=== PATIENT | male | born 1980 | race Caucasian/White ===

== ENCOUNTER 2025-02-28 10:31 | Observation (INO) | payer SELFPAY ==
[2025-02-28] VITALS (14 sets, daily range): BP systolic 139–159; BP diastolic 98–110; PULSE 112–120; RESP 19–40; TEMP 36.3–36.7; O2SAT 91–100; BMI 34.1
--- NOTE | ~2025-02-28 | XR_ITS ---
Examination: XR chest 2V Clinical History: SOB Comparison: None Technique: PA and Lateral Findings: Heart size upper limit of normal. Right basilar airspace opacity. No acute bony abnormality. IMPRESSION: 1. Right basilar airspace disease. Reviewed, dictated and finalized at location R. ICIAN INVESTIGATOR
--- NOTE | 2025-02-28 12:53 | ECG_ITS ---
Test Date: 2025-02-28 13:07:42 Measurements Intervals [place] Rate: 108 P: 74 AL: 124 QRS: -53 QRSD: 115 T: 98 QT: 354 QTc: 476 Interpretive Statements SINUS TACHYCARDIA WITH OCCASIONAL VENTRICULAR PREMATURE COMPLEXES LEFT ATRIAL ENLARGEMENT LEFT ANTERIOR FASCICULAR BLOCK NONSPECIFIC ST & T-WAVE ABNORMALITY- HIGH LATERAL LEADS BASELINE ARTIFACT- I, II, AVR ABNORMAL ECG No previous ECG available for comparison Electronically Signed On 02-28-2025 13:19:43 CLINICAL SUPPORT MANAGER by Joni Cardona D.O.
[2025-02-28 13:19] LABS: Hematocrit 48.9 % (42.0-52.0); Hemoglobin 15.8 g/dL (14.0-18.0); Immature Granulocyte Percent A 0.3 % (0-0.5); Lymphocytes Absolute Auto 1.46 K/mm3 (0.9-3.2); Mean Corpuscular HGB Conc 32.3 g/dl (32-36); Mean Corpuscular Hemoglobin 28.1 pg (26-34); Mean Corpuscular Volume 86.9 fl (80-100); Nucleated Red Blood Cells Absolute Auto 0.000 K/mm3 (0.0-0.012); Nucleated Red Blood Cells Perc 0.0 % (0.0-0.2); Platelet Count Result 324 k/mm3 (150-375); Red Blood Count 5.63 M/mm3 (4.6-6.20); White Blood Count 6.9 K/mm3 (4.5-10.0)
[2025-02-28 13:29] LABS: INR 1.0; Partial Thromboplastin Time 30.2 Seconds (22.3-36.8); Prothrombin Time 13.1 Seconds (11.1-14.7)
[2025-02-28 13:32] LABS: Alanine Aminotransferase 22 U/L (6-50); Albumin Level 4.1 g/dL (3.5-5.1); Alkaline Phosphatase 118 U/L (38-126); Anion Gap 8 mmol/L (4-12); Aspartate Amino Transferase 29 U/L (17-59); Bilirubin,Total 0.5 mg/dL (0.2-1.3); Blood Urea Nitrogen 20 mg/dL (9-20); Calcium 9.2 mg/dL (8.4-10.2); Carbon Dioxide 35 mmol/L (22-30); Chloride 90 mmol/L (98-107); Estimated Glomerular Filt Rate > 60; Glucose 393 mg/dL (65-110); Potassium 3.9 mmol/L (3.4-5.0); Sodium 133 mmol/L (137-145); Total Protein 7.9 g/dL (6.3-8.2)
[2025-02-28 13:44] LABS: NT Pro B Type Natriuretic Pept 4600 pg/mL (19.9-100); Troponin I 0.087 ng/mL (0.000-0.034)
[2025-02-28] MEDS: FUROSEMIDE INJ 40 MG/4 ML VIAL IV PUSH (13:53)
[2025-02-28] MEDS: IPRATROPIUM 0.5 MG/ALBUTEROL SULFATE 2.5 MG (BASE) AMPUL.NEB 3 ML INHALATION (14:22)
--- NOTE | 2025-02-28 15:11 | PM.IMHP2 ---
H&P: HPI History of Present Illness Date/Time: 02/28/25 15:11 Chief Complaint: Dyspnea Narrative: 44-year-old male with past medical history of diabetes, hypertension, COPD, ROSA MARIA on BiPAP, [place], CHF, alcohol abuse presents to the ED on 02/28/2025 with complaints of edema and shortness of breath. Patient had not taken his Lasix for roughly 1 week and was just able to resume it 2 days ago. Patient was moving back to this area and was driving from [place] last week. He was unable to get his Lasix prescription before leaving [place]. It took a much longer than expected to get into town due to weather, prevented him from obtaining his Lasix for almost 1 week. Although he resume the Lasix 2 days ago, he noticed bilateral lower extremity edema and shortness of breath that started yesterday. Feels more dyspneic with activity and lying flat. Patient states he was taking ?[id number] diuretics? while on the road that helped a lot and kept him out of the hospital while traveling up to this point. He does not know the name of what he was taking. Patient admits to drinking about 2 18 packs of beer weekly. He also uses cocaine. Patient is diabetic but does not check his sugar. He states he becomes symptomatic when his blood sugar is below 100. Initial vital signs 139/105, HR 112, respirations 40, afebrile and 100% on room air. Labs largely unremarkable. Sodium 133, chloride 90, carbon dioxide 35. Glucose 393. Initial troponin 0.087. BNP 4600. EKG reads sinus tach with occasional PVCs, left atrial enlargement left anterior fascicular block. Chest x-ray reads right basilar airspace disease. D-dimer drawn later 1.21 Review of Systems Review of Systems: All systems reviewed & are unremarkable except as noted in HPI and below [facility] Past Medical History Medical History (Updated 02/28/25 @ 22:16 by Kathleen Castañeda APRN) Hyperlipidemia Alcohol abuse Diabetes HTN (hypertension) Family History Family History (Updated 02/28/25 @ 16:55 by Laury Ho RN) Father Cancer, colon Cancer Sibling Drug abuse Cancer, colon Congestive heart failure Myocardial infarction COPD (chronic obstructive pulmonary disease) Mother COPD (chronic obstructive pulmonary disease) Cirrhosis Grandparent Cerebrovascular accident Social History Social History Smoking packs per day: 0.5 Smoking cigarettes per day: 10.0 Smoking status: Current every day smoker Tobacco type: cigarettes Alcohol intake: current Drinks per week: 36 Substance use: current Substance use type: crack/cocaine Last use: 02/25 for both alcohol and cocaine use Lack of Transportation: No Lack of Food: Sometimes True Current Housing: I Have Housing Concerned About Future Housing: No Difficulty Paying Gas/Electric Bills: No Difficulty Paying for Meds: No Currently Unemployed: No Education: Trade/Vocational Certificate Difficulty w/ Childcare or Family Care: No Spiritual care concerns: No Meds Home Medications and Allergies Home Medications ?Medication ?Instructions ?Recorded ?Confirmed ?Type apixaban 5 mg tablet (Eliquis) 5 mg PO Q12H 02/28/25 02/28/25 History aspirin 81 mg tablet,delayed 81 mg PO DAILY 02/28/25 02/28/25 History release (Adult Low Dose Aspirin) empagliflozin 25 mg tablet 25 mg PO DAILY 02/28/25 02/28/25 History (Jardiance) fenofibrate 150 mg capsule 150 mg PO HS 02/28/25 02/28/25 History furosemide 40 mg tablet (Lasix) 40 mg PO DAILY 02/28/25 02/28/25 History insulin aspart U-100 100 unit/mL 20 unit subcut TID 02/28/25 02/28/25 History (3 mL) subcutaneous pen (Novolog FlexPen U-100 Insulin aspart) insulin glargine 100 unit/mL 60 unit subcut QPM 02/28/25 02/28/25 History subcutaneous solution (Lantus U-100 Insulin) lisinopril 20 mg tablet 20 mg PO DAILY 02/28/25 02/28/25 History metformin 1,000 mg tablet 1,000 mg PO BID 02/28/25 02/28/25 History metoprolol succinate 100 mg 100 mg PO DAILY 02/28/25 02/28/25 History tablet,extended release 24 hr rosuvastatin 40 mg tablet 40 mg PO DAILY 02/28/25 02/28/25 History tirzepatide 2.5 mg/0.5 mL 2.5 mg subcut WEEKLY 02/28/25 02/28/25 History subcutaneous pen injector (Mounjaro) Allergies Allergy/AdvReac Type Severity Reaction Status Date / Time No Known Allergies Allergy Verified 02/28/25 16:44 Vital Signs Vital Signs - 24 hr 02/28/25 10:34 02/28/25 11:41 02/28/25 14:04 Temperature 97.6 F Pulse Rate 112 H Respiratory Rate 40 H 20 Blood Pressure 139/105 H Pulse Oximetry 100 Oxygen Delivery Room Air 02/28/25 14:04 02/28/25 14:13 02/28/25 14:22 Temperature Pulse Rate 112 H 112 H Respiratory Rate 20 19 Blood Pressure 159/110 H Pulse Oximetry 95 95 Oxygen Delivery Room Air 02/28/25 14:22 Temperature Pulse Rate Respiratory Rate Blood Pressure Pulse Oximetry 94 Oxygen Delivery Room Air Exam Narrative: GENERAL: non-toxic appearing, in no acute distress. Sitting up eating lunch HEAD: Normocephalic, atraumatic. EYES: PERRLA. Conjunctivae clear. NOSE: Normal no drainage. THROAT: Pharynx clear, no exudate. NECK: Trachea midline. No adenopathy, no masses. RESPIRATORY: Airway patent, respirations nonlabored. Crackles to right base. CARDIOVASCULAR: Regular rate and rhythm GASTROINTESTINAL: Abdomen is soft and nontender. No organomegaly. Bowel sounds normal in all quadrants. GENITOURINARY: Defer MUSCULOSKELETAL: Moves all extremities. No gross deformities. Bilateral lower extremity edema +2 SKIN: Warm, dry, normal color. NEURO: A&O X4. Speech clear PSYCHIATRIC: Normal interaction Results Labs Labs: Short CBC 02/28/25 Range/Units 13:09 WBC 6.9 (4.5-10.0) K/mm3 Hgb 15.8 (14.0-18.0) g/dL Hct 48.9 (42.0-52.0) % Plt Count 324 (150-375) k/mm3 [facility] 02/28/25 13:09 Sodium 133 L Potassium 3.9 Chloride 90 L Carbon Dioxide 35 H BUN 20 Creatinine 1.28 Glucose 393 H Calcium 9.2 Cardiac Enzymes 02/28/25 Range/Units 13:09 Troponin I 0.087 H* (0.000-0.034) ng/mL Liver Function 02/28/25 Range/Units 13:09 Total Bilirubin 0.5 (0.2-1.3) mg/dL AST 29 (17-59) U/L ALT 22 (6-50) U/L Alkaline Phosphatase 118 (38-126) U/L Albumin 4.1 (3.5-5.1) g/dL Quality VTE Prophylaxis VTE prophylaxis: mechanical ordered Assessment and Plan Assessment and plan (1) Acute exacerbation of CHF (congestive heart failure): Qualifiers: Heart failure type: unspecified Qualified Code(s): I50.9 - Heart failure, unspecified Code(s): I50.9 - Heart failure, unspecified Status: Acute Assessment and Plan: Patient without Lasix for about 1 week. Noticed increased edema and dyspnea over the past 2 days. BNP 4600. 40 mg IVP Lasix given in ED with 2 L output shortly after. Patient stated he felt less dyspneic afterwards. Chest x-ray reads right basilar airspace disease. - echo ordered with no previous to review - currently on Jardiance, 40 mg Lasix - monitor I&Os and daily weights - trend renal function - 40 mg IVP Lasix b.i.d. (2) Elevated d-dimer: Code(s): R79.89 - Other specified abnormal findings of blood chemistry Status: Acute Assessment and Plan: D-dimer 1.21 -CTA chest ordered (3) Diabetes: Qualifiers: Diabetes mellitus type: type 2 Diabetes mellitus middle or intermediate school principal insulin use: with middle or intermediate school principal use Code(s): E11.9 - Type 2 diabetes mellitus without complications Status: Chronic Assessment and Plan: Blood glucose extremely high. Initial result was 393 but patient declined treatment in the ED. Patient was given 40 mg IVP methylprednisolone. - 10 units IVP regular insulin x1 for glucose >500 - hypoglycemia protocol - POC blood glucose ACHS - home medication: Lantus 60 units, NovoLog 20 units t.i.d., metformin 1000 mg b.i.d., mounjaro 2.5 mg weekly - correct regimen ordered: Lantus 48 units, moderate sliding scale-will likely need increased - A1C with morning labs - clinical trial educator consulted (4) HTN (hypertension): Qualifiers: Hypertension type: primary hypertension Qualified Code(s): I10 - Essential (primary) hypertension Code(s): I10 - Essential (primary) hypertension Status: Chronic Assessment and Plan: Continue lisinopril, metoprolol (5) Alcohol abuse: Code(s): F10.10 - Alcohol abuse, uncomplicated Status: Chronic Assessment and Plan: -36 beers per week - last drink was on 02/25. Patient denies withdrawal history - [facility] protocol in place - Ativan PRN - seizure precautions - neurochecks Q4H - antiemetics PRN - folic acid and thiamine daily (6) Hyperlipidemia: Qualifiers: Hyperlipidemia type: unspecified Qualified Code(s): E78.5 - Hyperlipidemia, unspecified Code(s): E78.5 - Hyperlipidemia, unspecified Status: Chronic Assessment and Plan: Continue fenofibrate, rosuvastatin Plan Diet: Heart healthy, consistent carb DVT prophylaxis: SCDs lines/drains: PIV Fluids: NA Code status: Full Prior Studies I have reviewed the following patient records and this information was taken into consideration when formulating the assessment and plan.: previous labs, previous ER visits, previous hospitalizations and previous clinic visits Time Spent with Patient Time with patient: 45 - 74 minutes Hospitalist MIPS Advance Care Plan I have confirmed that the patient's Advanced Care Plan is present, code status is documented, or surrogate decision maker is listed in patient medical record.: Yes Medication Reconciliation I have utilized all available resources to obtain, update and review the patients current medications (includes all prescriptions, OTC, herbals, cannabis, and nutritional supplements).: Yes
--- NOTE | 2025-02-28 15:56 | WPCEDHO ---
ED Hand Off Checklist All vitals saved:yes IV Site documented:yes All med administrations documented:yes Triage Note Triage Note Patient to ED for evaluation of 02/28/25 14:12 SOB. Patient reports he has been unable to take his meds for approx a week, lasix being one of them. Allergies No Known Allergies Allergy (Verified 02/28/25 10:33) Administered/Completed Medications Discontinued Medications Albuterol/Ipratropium (Ipratropium 0.5 Mg/Albuterol Sulfate 2.5 Mg (Base) Ampul.Neb 3 Ml) 3 ml INHALATION ONCE STA Stop: 02/28/25 14:00 Last Admin: 02/28/25 14:22 Dose: 3 ml Documented By: ALPHONSO Furosemide (Furosemide Inj 40 Mg/4 Ml Vial) 40 mg IV PUSH ONCE STA Stop: 02/28/25 13:49 Last Admin: 02/28/25 13:53 Dose: 40 mg Documented By: JAMES Methylprednisolone Sodium Succinate (Methylprednisolone Sod Succ 40 Mg Vial) 40 mg IV PUSH ONCE STA Stop: 02/28/25 14:00 Last Admin: 02/28/25 14:11 Dose: 40 mg Documented By: LELO Interventions/Assessments Cardiac Monitoring Start: 02/28/25 10:32 Freq: Status: Active Protocol: Document 02/28/25 14:04 LELO (Rec: 02/28/25 14:04 LELO [id number]) Tax Accountant Assessment Tax Accountant Yes Applied Pulse Rate (60-100) 112 H IV / Saline Lock, Insert Start: 02/28/25 12:53 Freq: STAT Status: Active Protocol: Document 02/28/25 13:12 KNW (Rec: 02/28/25 13:12 KNW [id number]) IV Assessment Peripheral Access Left Antecubital IV Catheter Access Initiated IV Insertion Date 02/28/25 IV Insertion Time 13:12 Catheter Gauge 18 IV Site Assessment WNL IV Care and WNL Maintenance PA: Cardiovascular Assessment Start: 02/28/25 10:32 Freq: Status: Active Protocol: Document 02/28/25 14:14 LELO (Rec: 02/28/25 14:14 LELO [id number]) Cardiovascular Assessment Cardiovascular Dyspnea Symptoms PA: Respiratory Assessment Start: 02/28/25 10:32 Freq: Status: Active Protocol: Document 02/28/25 14:13 LELO (Rec: 02/28/25 14:14 LELO [id number]) Respiratory Assessment Symptoms Shortness of Breath at Rest,Shortness of Breath With Exertion,Wheezing Effort Abdominal Breathing,Short of Breath Pattern Regular Depth Normal Chest Expansion Symmetrical Adult Capillary Normal/Less than 2 Seconds Refill Bilateral Throughout Phase Expiratory Lung Sounds Diminished,Wheezes Cough Description None Oxygen Delivery Oxygen Delivery Room Air Pulse Oximetry (90- 95 100) Last Vital Signs Temperature 97.6 F 02/28/25 10:34 Pulse Rate 117 H 02/28/25 15:52 Respiratory Rate 20 02/28/25 15:52 Pulse Oximetry 96 02/28/25 15:52 Blood Pressure 152/101 H 02/28/25 15:52 Blood Pressure Mean 118 02/28/25 15:52 Blood Pressure Position Sitting 02/28/25 15:52 Oxygen Delivery Room Air 02/28/25 14:22 Weight 113 kg 02/28/25 14:12 Last Result - Abnormals Only RDW 14.9 % (11.5-14.5) H 02/28/25 13:09 Sodium 133 mmol/L (137-145) L 02/28/25 13:09 Chloride 90 mmol/L (98-107) L 02/28/25 13:09 Carbon Dioxide 35 mmol/L (22-30) H 02/28/25 13:09 Glucose 393 mg/dL (65-110) H 02/28/25 13:09 Troponin I 0.087 ng/mL (0.000-0.034) H* 02/28/25 13:09 NT-Pro-B Natriuret Pep 4600 pg/mL (19.9-100) H 02/28/25 13:09 Most Recent Suicide Severity Rating Suicide Severity Rating NO RISK INDICATED 02/28/25 14:12
--- NOTE | 2025-02-28 16:26 | ED.SOB ---
HPI - SOB/Dyspnea General Chief Complaint: Shortness of Breath/Dyspnea Stated Complaint: fluid retention, didn't take Lasix for 1 week Time Seen by Provider: 02/28/25 13:46 History of Present Illness HPI Narrative: The patient just moved here from [place], and before he left was unable to corn picker his prescriptions for Lasix, has been out of it for about a week. He is feeling a lot of swelling to his legs, increased shortness of breath, much worse when he walks or lays flat. Related Data Allergies Allergy/AdvReac Type Severity Reaction Status Date / Time No Known Allergies Allergy Verified 02/28/25 16:28 Review of Systems Review of Systems: All systems reviewed & are unremarkable except as noted in HPI and below Exam Narrative: EXAMINATION OF ORGAN SYSTEMS/BODY AREAS: Constitutional: Vital signs per nursing GENERAL:No acute distress, non-toxic appearing. HEAD: Normal with no signs of head trauma. EYES: EOMI, conjunctiva normal ENT: Hearing grossly intact LUNGS: Some wheezing in bases, crackles in bases HEART: Regular rate and rhythm ABD: Soft, nontender to palpation EXT: Normal range of motion, lower extremity edema SKIN: No rashes or lesions. NEURO: Alert. No gross focal sensory or strength deficits. PSYCH: Normal affect Course Vital Signs Vital signs: Vital Signs Temperature 97.6 F 02/28/25 10:34 Respiratory Rate 40 H 02/28/25 10:34 Blood Pressure 139/105 H 02/28/25 10:34 Pulse Oximetry 100 02/28/25 10:34 Oxygen Delivery Room Air 02/28/25 10:34 Temperature 97.6 F 02/28/25 10:34 Pulse Rate 117 H 02/28/25 15:52 Respiratory Rate 20 02/28/25 15:52 Blood Pressure 152/101 H 02/28/25 15:52 Pulse Oximetry 96 02/28/25 15:52 Oxygen Delivery Room Air 02/28/25 14:[address] [facility] Narrative Medical decision making narrative: 44M presenting to the emergency department with chest tightness, dyspnea, orthopnea and edema, presentation and history of CHF, consistent with most likely CHF exacerbation vs ACS/AZ, COPD exacerbation, pneumonia, PE. IV is established and cardiac workup is initiated. Patient is given lasix. EKG: Performed in triage and interpreted by me. [Sinus rhythm]. Rate 108. Left axis. NM 124. QRS duration 115. QTc 476. No pathologic Q waves. No ST segment elevation or depression to suggest acute ischemia. Chest x-ray is performed and remarkable for [cardiomegaly with pulmonary vascular congestion]. Labs showing troponin 0.087, though he has no chest pain so I suspect this is from the CHF exacerbation, with his elevated BNP of 4600. [The patient will be admitted for CHF exacerbation and further management.] Was discussed with hospitalist for admission I did also add on a D-dimer that had here low concern for PE as his oxygen is normal here and this is more likely CHF, I did update the hospitalist. Differential Diagnosis Differential Diagnosis: CHF exacerbation, COPD exacerbation, pneumonia, ACS, PE Lab Data 02/28/25 13:09 02/28/25 13:09 Labs: Lab Results 02/28/25 Range/Units 13:09 WBC 6.9 (4.5-10.0) K/mm3 RBC 5.63 (4.6-6.20) M/mm3 Hgb 15.8 (14.0-18.0) g/dL Hct 48.9 (42.0-52.0) % MCV 86.9 (80-100) fl MCH 28.1 (26-34) pg MCHC 32.3 (32-36) g/dl RDW 14.9 H (11.5-14.5) % Plt Count 324 (150-375) k/mm3 MPV 10.3 (7.4-10.4) fl Immature Gran % (Auto) 0.3 (0-0.5) % Neut % (Auto) 69.0 (45.5-73.1) % Lymph % (Auto) 21.3 (18.3-44.2) % [place] % (Auto) 6.6 (2.6-8.5) % Eos % (Auto) 2.2 (0-4.4) % Baso % (Auto) 0.6 (0.2-1.2) % Lymph # (Auto) 1.46 (0.9-3.2) K/mm3 [place] # (Auto) 0.5 (0.1-0.6) K/mm3 Eos # (Auto) 0.2 (0-0.3) K/mm3 Baso # (Auto) 0.0 (0.0-0.1) K/mm3 Abs Immat Gran (auto) 0.02 (0.00-0.031) K/mm3 Absolute Neuts (auto) 4.7 (1.3-6.7) K/mm3 Absolute Nucleated RBC 0.000 (0.0-0.012) K/mm3 Nucleated RBC % 0.0 (0.0-0.2) % PT 13.1 (11.1-14.7) Seconds INR 1.0 APTT 30.2 (22.3-36.8) Seconds Sodium 133 L (137-145) mmol/L Potassium 3.9 (3.4-5.0) mmol/L Chloride 90 L (98-107) mmol/L Carbon Dioxide 35 H (22-30) mmol/L Anion Gap 8 (4-12) mmol/L BUN 20 (9-20) mg/dL Creatinine 1.28 (0.7-1.3) mg/dL Estim Creat Clear Calc Not Reportable Estimated GFR > 60 (59 - ) Glucose 393 H (65-110) mg/dL Calcium 9.2 (8.4-10.2) mg/dL Total Bilirubin 0.5 (0.2-1.3) mg/dL AST 29 (17-59) U/L ALT 22 (6-50) U/L Alkaline Phosphatase 118 (38-126) U/L Troponin I 0.087 H* (0.000-0.034) ng/mL NT-Pro-B Natriuret Pep 4600 H (19.9-100) pg/mL Total Protein 7.9 (6.3-8.2) g/dL Albumin 4.1 (3.5-5.1) g/dL Imaging Data Radiologist's impression: ITS Impressions Chest X-Ray 02/28/25 13:25 IMPRESSION: 1. Right basilar airspace disease. Discharge Plan Discharge Clinical Impression: Acute exacerbation of CHF (congestive heart failure) Patient Disposition: Still a Patient Condition: Stable
--- NOTE | 2025-02-28 16:30 | ADMGEN ---
This patient, Redd Michel, was admitted to IMU Room 210-01. Patient/family oriented to hospital policies and general routines including ID bracelet, bed and alarms, visiting hours, pain management, procedures, bathroom and other care routines, personal items, smoking policy, room service/diet, and visiting hours. Information on how to activate the Rapid Response Team has been discussed. Patient/Family are encouraged to report perceived risks to care and to ask questions if they do not understand what they are told or what they should do.
[2025-02-28 17:26] LABS: Troponin I 0.083 ng/mL (0.000-0.034)
[2025-02-28] MEDS: INSULIN ASPART (*BKC) 100 UNITS/ML 10 UNITS SUB-Q (17:51)
[2025-02-28] MEDS: APIXABAN 5 MG TABLET PO (22:18)
[2025-02-28] MEDS: FENOFIBRATE 145 MG TABLET PO (22:18)
[2025-02-28] MEDS: INSULIN ASPART (*BKC) 100 UNITS/ML 6 UNITS SUB-Q (22:19)
[2025-02-28] MEDS: INSULIN GLARGINE (*BKC) 100 UNITS/ML 48 UNITS SUB-Q (22:20)
[2025-02-28] MEDS: INSULIN HUMAN REGULAR (*BKC) 100 UNITS/ML 10 UNITS IV PUSH (22:23)
[2025-03-01] VITALS (9 sets, daily range): BP systolic 138–143; BP diastolic 83–102; PULSE 96–112; RESP 18; TEMP 36.7–36.8; O2SAT 92–98
[2025-03-01] MEDS: INSULIN ASPART (*BKC) 100 UNITS/ML SUB-Q ×2 (00:29→09:15)
[2025-03-01 04:18] LABS: Hematocrit 46.7 % (42.0-52.0); Hemoglobin 15.4 g/dL (14.0-18.0); Immature Granulocyte Percent A 0.4 % (0-0.5); Lymphocytes Absolute Auto 1.06 K/mm3 (0.9-3.2); Mean Corpuscular HGB Conc 33.0 g/dl (32-36); Mean Corpuscular Hemoglobin 28.1 pg (26-34); Mean Corpuscular Volume 85.2 fl (80-100); Nucleated Red Blood Cells Absolute Auto 0.000 K/mm3 (0.0-0.012); Nucleated Red Blood Cells Perc 0.0 % (0.0-0.2); Platelet Count Result 329 k/mm3 (150-375); Red Blood Count 5.48 M/mm3 (4.6-6.20); White Blood Count 8.0 K/mm3 (4.5-10.0)
[2025-03-01 04:25] LABS: Hemoglobin A1C 11.8 % (<5.7)
[2025-03-01 04:39] LABS: Anion Gap 6 mmol/L (4-12); Blood Urea Nitrogen 24 mg/dL (9-20); Calcium 8.7 mg/dL (8.4-10.2); Carbon Dioxide 36 mmol/L (22-30); Chloride 91 mmol/L (98-107); Estimated CRCL calculation 96 ml/min; Estimated Glomerular Filt Rate > 60; Glucose 240 mg/dL (65-110); Potassium 3.7 mmol/L (3.4-5.0); Sodium 133 mmol/L (137-145)
[2025-03-01] MEDS: FUROSEMIDE INJ 40 MG/4 ML VIAL IV PUSH (09:15)
[2025-03-01] MEDS: METOPROLOL SUCCINATE EXT REL 100 MG TABCR PO (09:16)
[2025-03-01] MEDS: FOLIC ACID 1 MG TABLET PO (09:16)
[2025-03-01] MEDS: ASPIRIN 81 MG ENTERIC TABLET PO (09:17)
[2025-03-01] MEDS: ROSUVASTATIN 20 MG TABLET 40 MG PO (09:17)
[2025-03-01] MEDS: EMPAGLIFLOZIN 25 MG TABLET PO (09:17)
[2025-03-01] MEDS: THIAMINE HCL 100 MG TABLET PO (09:17)
[2025-03-01] MEDS: APIXABAN 5 MG TABLET PO (09:18)
--- NOTE | 2025-03-01 09:31 | PC.NURSE ---
PATIENT STATED HE WANTED TO LEAVE AMA DUE TO NOT HAVING INSURANCE AND ALREADY HAVING MEDICAL BILLS. THIS NURSE CALLED DR CARABALLO AND CHARGE NURSE TO MAKE THEM AWARE. THIS NURSE EDUCATED PATIENT ON THE IMPORTANCE OF STAYING AND GETTING MEDICAL TREATMENT AND LEAVING ONCE THE DOCTOR HAS MEDICALLY CLEARED HIM. PATIENT STILL REFUSES. AMA FORM GIVEN TO PATIENT.
--- NOTE | 2025-03-01 11:31 | PCCARD ---
Patient left AMA. Echo not completed.
--- NOTE | 2025-03-02 13:46 | PCCDE ---
03/02/25: DM educator attempted courtesy follow up call: outgoing voice message stating mailbox is full...... Unable to leave message.
--- NOTE | 2025-03-05 11:10 | PM.DS ---
DS: Admitting Diagnosis Discharge Date 03/01/25 Admitting Diagnosis Dyspnea DS: Summary Hospital Course Hospital Course: patient admitted with Dyspnea left AMA before I can see him. Time Spent with Patient Time attestation: Total time spent providing and/or coordinating discharge services: Discharge Plan Discharge Attending physician on discharge: Maximilian Cr Consulting providers: Halie Rowan; Kathleen Castañeda Discharging Clinician: Maximilian Cr Anticipated Discharge Date/Time: 03/01/25 10:06 Patient Disposition: Left Against Medical Advice Patient Instructions: Heart Failure (GEN) Patient Language: Azeri Discharge Medications: No Action furosemide [Lasix] 40 mg tablet 40 mg PO DAILY fenofibrate 150 mg capsule 150 mg PO HS rosuvastatin 40 mg tablet 40 mg PO DAILY lisinopril 20 mg tablet 20 mg PO DAILY metoprolol succinate 100 mg tablet extended release 24 hr 100 mg PO DAILY Eliquis 5 mg tablet 5 mg PO Q12H aspirin [Adult Low Dose Aspirin] 81 mg tablet,delayed release (DR/EC) 81 mg PO DAILY Jardiance 25 mg tablet 25 mg PO DAILY insulin glargine [Lantus U-100 Insulin] 100 unit/mL solution 60 unit subcut QPM insulin aspart U-100 [Novolog FlexPen U-100 Insulin] 100 unit/mL (3 mL) insulin pen 20 unit subcut TID metformin 1,000 mg tablet 1,000 mg PO BID Mounjaro 2.5 mg/0.5 mL pen injector 2.5 mg subcut WEEKLY Patient Comments: Takes on Saturdays Rx Instructions: for 4 weeks Date of admission: 02/28/25 14:53 Primary Care Provider: PHYSICIAN,JIGGER ARTISAN Admitting Provider: Maximilian Cr Attending physician on admission: Maximilian Cr Condition: Stable
== END 2025-03-01 10:06 | disposition left against medical advice (07) ==
LOC: ANHED 14:37 → ANHIMU 15:54
PROVIDERS: Nurse Practitioner Adult Health; Physician Assistant; Admitting Provider Family Medicine; Emergency Provider Emergency Medicine; Visit Provider Family Medicine
DX: I11.0 Hypertensive heart disease with heart failure (principal); I50.9 Heart failure, unspecified; R79.89 Other specified abnormal findings of blood chemistry; E11.9 Type 2 diabetes mellitus without complications; J44.9 Chronic obstructive pulmonary disease, unspecified; G47.33 Obstructive sleep apnea (adult) (pediatric); Z99.89 Dependence on other enabling machines and devices; F14.90 Cocaine use, unspecified, uncomplicated; F10.10 Alcohol abuse, uncomplicated; E78.5 Hyperlipidemia, unspecified; F17.210 Nicotine dependence, cigarettes, uncomplicated; Z79.85 Long-term (current) use of injectable non-insulin antidiabetic drugs; Z79.84 Long term (current) use of oral hypoglycemic drugs; Z79.01 Long term (current) use of anticoagulants
CPT/HCPCS: 36415; 71046; 80048; 80053; 82948; 83036; 83880; 84484; 85025; 85380; 85610; 85730; 93005; 94640; 96374; 96375; 99285; A9270; G0378; J1815; J1938; J2919

== ENCOUNTER 2025-03-10 00:27 | Inpatient (IN) | payer SELFPAY ==
[2025-03-10] VITALS (17 sets, daily range): BP systolic 129–158; BP diastolic 89–111; PULSE 54–117; RESP 16–98; TEMP 36–37; O2SAT 16–100; BMI 35.6
--- NOTE | 2025-03-10 | ECHO_ITS ---
Patient Info Name: Redd Michel Age: 44 years : 1980 Gender: Male Ht: 72 in Wt: 262 lbs BSA: 2.50 m2 HR: 105 bpm BP: 132 / 89 mmHg Heart Rhythm: Atrial Fibrillation Technical Quality: Good Exam Date: 03/10/2025 11:19 AM Patient Status: I Admit Date: 03/10/2025 Exam Type: CA echo doppler color flow Complete two-dimensional, color flow and Doppler transthoracic echocardiogram is performed. Staff Referring Physician: Rd Dewey Boiler Control Room Operator: Liam Michel III Attending Provider: Brynn Delarosa DO Summary 1. Complete two-dimensional, color flow and Doppler transthoracic echocardiogram is performed. 2. Left ventricular chamber dimension is mildly enlarged. 3. Left ventricular systolic function is moderately reduced, estimated at 35. 4. There is mildly increased left ventricular wall thickness. 5. Right ventricular chamber dimension is moderately enlarged. 6. Right ventricular systolic function is reduced. 7. Left atrial chamber dimension is moderately enlarged. 8. Right atrial chamber dimension is mildly enlarged. 9. There is trace aortic valve regurgitation. 10. There is mild mitral valve regurgitation. 11. There is mild to moderate tricuspid valve regurgitation. 12. Mild pulmonary hypertension, estimated pulmonary arterial systolic pressure is 37 mmHg. Left Ventricle Left ventricular chamber dimension is mildly enlarged. Left ventricular systolic function is moderately reduced, estimated at 35. There is mildly increased left ventricular wall thickness. Left ventricular septal wall motion is normal. The left ventricular diastolic function is abnormal. Right Ventricle Right ventricular chamber dimension is moderately enlarged. Right ventricular systolic function is reduced. Left Atria Left atrial chamber dimension is moderately enlarged. Right Atria Right atrial chamber dimension is mildly enlarged. Aortic Valve The aortic valve is trileaflet. There is no aortic valve sclerosis. There is no aortic valve stenosis. There is trace aortic valve regurgitation. There is mild aortic valve calcification. Pulmonic Valve The pulmonic valve is normal. There is no pulmonic valve stenosis. There is no pulmonic regurgitation. Mitral Valve The mitral valve has normal leaflets. There is no mitral valve stenosis. There is mild mitral valve regurgitation. Tricuspid Valve The tricuspid valve leaflets are normal. There is no significant tricuspid valve stenosis. There is mild to moderate tricuspid valve regurgitation. Mild pulmonary hypertension, estimated pulmonary arterial systolic pressure is 37 mmHg. Pericardium/Pleural The pericardium appears normal. There is no pericardial effusion. Inferior Vena Cava Normal inferior vena cava with >50% collapse upon inspiration consistent with normal right atrial pressure, 5 mmHg. Aorta The aortic root size at the sinus of Valsalva is normal. The prox ascending aorta size is normal. Left Ventricular Outflow Tract Name Value Normal LVOT 2D LVOT Diameter 2.2 cm LVOT Doppler LVOT Peak Velocity 87 cm/s LVOT Peak Gradient 3 mmHg LVOT Mean Gradient 2 mmHg LVOT VTI 12 cm LVOT VTI/AV VTI Ratio 1.2 LVOT Stroke Volume 42 ml LVOT CO 4.5 l/min LVOT CI 1.8 l/min/m2 Pulmonic Valve Name Value Normal PV Doppler PV Peak Velocity 71 cm/s PV Peak Gradient 2 mmHg PV Mean Gradient 1 mmHg PV Regurgitation Doppler ME Peak End Diastolic Velocity 137 cm/s Mitral Valve Name Value Normal MV Doppler MV Peak Gradient 7 mmHg MV Mean Gradient 3 mmHg MV Area (Cont Eq VTI) 2.5 cm2 MV Regurgitation Doppler MR Peak Gradient 68 mmHg MV Diastolic Function MV E Peak Velocity 114 cm/s MV Decel Time (PW) 110 ms MV Annular TDI MV E/e' (Septal) 25.7 MV E/e' (Lateral) 9.2 MV E/e' (Average) 17.5 Tricuspid Valve Name Value Normal TV Regurgitation Doppler TR Peak Velocity 284 cm/s TR Peak Gradient 32 mmHg Estimated PAP/RSVP RA Pressure 5 mmHg <=5 PA Systolic Pressure 37 mmHg <36 RV Systolic Pressure 37 mmHg <36 TV Annular TDI TV Lateral Zuleyma s' Velocity 10.6 cm/s >=9.5 Aortic Valve Name Value Normal AV Doppler AV Peak Velocity 78 cm/s AV Peak Gradient 2 mmHg AV Mean Gradient 1 mmHg AV VTI 10 cm AV Area (Cont Eq VTI) 4.3 cm2 >=3.0 AV Area (Cont Eq Florin) 4.1 cm2 AV DI (Florin) 1.11 AV Regurgitation 2D LVOT Area 3.7 cm2 Ventricles Name Value Normal LV Dimensions 2D/MM IVS Diastolic Thickness (2D) 1.4 cm 0.6-1.0 LVID Diastole (2D) 6.0 cm 4.2-5.8 LVIW Diastolic Thickness (2D) 1.5 cm 0.6-1.0 LVID Systole (2D) 4.9 cm 2.5-4.0 LVOT Diameter 2.2 cm LV Mass (2D Cubed) 413.13 g 88.00-224.00 LV Mass Index (2D Cubed) 165 g/m2 49-115 Relative Wall Thickness (2D) 0.50 <=0.42 LV Fractional Shortening/Ejection Fraction 2D/MM LV Fractional Shortening (2D) 20 % 25-43 LV EF (2D Teichholz) 40 % LV Diastolic Volume (4C MOD) 159 ml LV EF (4C MOD) 31 % LV Diastolic Volume (2C MOD) 195 ml LV EF (2C MOD) 36 % LV Diastolic Volume (BP MOD) 187 ml 62-150 LV Diastolic Volume Index (BP MOD) 75 ml/m2 34-74 LV Systolic Volume (BP MOD) 118 ml 21-61 LV Systolic Volume Index (BP MOD) 47 ml/m2 11-31 LV EF (BP MOD) 37 % 52-72 LV Diastolic Length (4C) 7.9 cm LV Systolic Length (4C) 7.5 cm LV Stroke Volume (4C MOD) 49 ml Atria Name Value Normal LA Dimensions LA Volume (4C A-L) 156 ml LA Volume (BP A-L) 153 ml RA Dimensions RA Systolic Major Burwell Length (4C) 7.1 cm 2.1-2.7 RA Area (4C) 25.7 cm2 <=18.0 Report Signatures
--- NOTE | ~2025-03-10 | XR_ITS ---
Examination: XR chest 1V portable Clinical History: SOB Comparison: 02/28/2025 Technique: Portable AP Findings: Heart size enlarged. Diffuse right lung airspace opacity. No acute bony abnormality. IMPRESSION: 1. Unilateral right lung pulmonary edema and/or airspace disease. 2. Pericardial effusion not excluded. Reviewed, dictated and finalized at location R. [employer]
--- NOTE | 2025-03-10 00:38 | ECG_ITS ---
Test Date: 2025-03-10 00:37:37 Measurements Intervals [place] Rate: 113 P: 74 CO: 128 QRS: -55 QRSD: 118 T: 74 QT: 390 QTc: 537 Interpretive Statements SINUS TACHYCARDIA WITH OCCASIONAL VENTRICULAR PREMATURE COMPLEXES LEFT AXIS DEVIATION LEFT ATRIAL ENLARGEMENT LEFT ANTERIOR FASCICULAR BLOCK BORDERLINE ST-T WAVE ABNORMALITY- LAT/HIGH LAT LEADS ABNORMAL ECG Compared to ECG 02/28/2025 13:07:42 NO SIGNIFICANT CHANGE Electronically Signed On 03-10-2025 09:10:23 FAMILY LIFE EDUCATOR by Joni Cardona D.O.
[2025-03-10 00:56] LABS: Hematocrit 45.7 % (42.0-52.0); Hemoglobin 15.2 g/dL (14.0-18.0); Immature Granulocyte Percent A 0.2 % (0-0.5); Lymphocytes Absolute Auto 1.81 K/mm3 (0.9-3.2); Mean Corpuscular HGB Conc 33.3 g/dl (32-36); Mean Corpuscular Hemoglobin 28.0 pg (26-34); Mean Corpuscular Volume 84.3 fl (80-100); Nucleated Red Blood Cells Absolute Auto 0.000 K/mm3 (0.0-0.012); Nucleated Red Blood Cells Perc 0.0 % (0.0-0.2); Platelet Count Result 323 k/mm3 (150-375); Red Blood Count 5.42 M/mm3 (4.6-6.20); White Blood Count 8.4 K/mm3 (4.5-10.0)
[2025-03-10 01:08] LABS: Alanine Aminotransferase 36 U/L (6-50); Albumin Level 3.8 g/dL (3.5-5.1); Alkaline Phosphatase 126 U/L (38-126); Anion Gap 9 mmol/L (4-12); Aspartate Amino Transferase 39 U/L (17-59); Bilirubin,Total 0.5 mg/dL (0.2-1.3); Blood Urea Nitrogen 24 mg/dL (9-20); Calcium 9.0 mg/dL (8.4-10.2); Carbon Dioxide 29 mmol/L (22-30); Chloride 93 mmol/L (98-107); Estimated Glomerular Filt Rate > 60; Glucose 541 mg/dL (65-110); Potassium 3.9 mmol/L (3.4-5.0); Sodium 131 mmol/L (137-145); Total Protein 7.0 g/dL (6.3-8.2)
[2025-03-10 01:10] LABS: NT Pro B Type Natriuretic Pept 4710 pg/mL (19.9-100)
[2025-03-10 01:26] LABS: Influenza A QL RT-PCR Negative (Negative); Influenza B QL RT-PCR Negative (Negative); RSV RNA, RT-PCR Negative (Negative); SARS-CoV-2 RNA PCR Negative (Negative)
[2025-03-10 01:32] LABS: Add Urine Microscopic? YES; Appearance Urine Clear (Clear); Glucose Urine UA 3+ mg/dL (Negative); Leukocyte Esterase Ur Negative LEU/UL (Negative); Nitrate Urine Negative (Negative); Non Pathogenic Casts 0-2; Specific Grav Ur 1.012 (1.001-1.035)
[2025-03-10 01:35] LABS: Beta-Hydroxybutyrate/Acetoace. 0.13 mmol/L (0.02-0.27)
[2025-03-10 01:37] LABS: PCO2 VBG 53.6 mmHg (42.0-48.0); PO2 VBG 27.0 mmHg (35.0-45.0); pH VBG 7.410 (7.300-7.400)
[2025-03-10 01:38] LABS: HCO3 VBG 33.2 mEq/l (24.0-30.0)
[2025-03-10] MEDS: INSULIN HUMAN REGULAR (*BKC) 100 UNITS/ML 12 UNITS IV PUSH (01:40)
--- NOTE | 2025-03-10 01:45 | ED.SOB ---
HPI - SOB/Dyspnea General Chief Complaint: Shortness of Breath/Dyspnea Stated Complaint: fluid retention, cant breath Time Seen by Provider: 03/10/25 00:54 History of Present Illness HPI Narrative: 44-year-old male with a past medical history including COPD, CHF, hypertension, diabetes, ROSA MARIA. Patient presents to the emergency department today with shortness of breath, exertional dyspnea and fluid retention. Patient was admitted to the hospital about 10 days ago for similar but left against medical advice as he states that he did not like the food that was provided to him in the hospital. Patient has a history of noncompliance per family members. Patient states he also has a history of alcohol use but denies any intoxication or withdrawal symptoms. He states he does not check his blood sugars at home. States that he has been taking Lasix for his fluid retention but ran out of this medication and just found 3 tablets of today and took them at home. States that he still getting fluid retaining on his legs and abdomen. He was getting worsening shortness of breath throughout the day and felt remorseful about leaving the hospital against medical advice and came back for evaluation. No chest pain or chest tightness. No nausea, vomiting, abdominal pain, back pain. His only complaint at this time is shortness of breath with rest and exertional component making it worse. Uses BiPAP at home. Related Data Home Medications ?Medication ?Instructions ?Recorded ?Confirmed ?Last Taken ?Type apixaban 5 mg tablet (Eliquis) 5 mg PO Q12H 02/28/25 03/10/25 02/27/25 History aspirin 81 mg tablet,delayed 81 mg PO DAILY 02/28/25 03/10/25 Unknown History release (Adult Low Dose Aspirin) empagliflozin 25 mg tablet 25 mg PO DAILY 02/28/25 03/10/25 Unknown History (Jardiance) fenofibrate 150 mg capsule 150 mg PO HS 02/28/25 03/10/25 Unknown History furosemide 40 mg tablet (Lasix) 40 mg PO DAILY 02/28/25 03/10/25 Unknown History insulin aspart U-100 100 unit/mL 20 unit subcut TID 02/28/25 03/10/25 Unknown History (3 mL) subcutaneous pen (Novolog FlexPen U-100 Insulin aspart) insulin glargine 100 unit/mL 60 unit subcut QPM 02/28/25 03/10/25 Unknown History subcutaneous solution (Lantus U-100 Insulin) lisinopril 20 mg tablet 20 mg PO DAILY 02/28/25 03/10/25 Unknown History metformin 1,000 mg tablet 1,000 mg PO BID 02/28/25 03/10/25 Unknown History metoprolol succinate 100 mg 100 mg PO DAILY 02/28/25 03/10/25 Unknown History tablet,extended release 24 hr rosuvastatin 40 mg tablet 40 mg PO DAILY 02/28/25 03/10/25 Unknown History tirzepatide 2.5 mg/0.5 mL 2.5 mg subcut WEEKLY 02/28/25 03/10/25 Unknown History subcutaneous pen injector (Mounjaro) Allergies Allergy/AdvReac Type Severity Reaction Status Date / Time No Known Allergies Allergy Verified 03/10/25 04:57 Review of Systems Review of Systems: As reviewed above in HPI All systems reviewed & are unremarkable except as noted in HPI and below PMFSH Past Medical History Medical History Hyperlipidemia Alcohol abuse Diabetes HTN (hypertension) Family History Family History Father Cancer, colon Cancer Sibling Drug abuse Cancer, colon Congestive heart failure Myocardial infarction COPD (chronic obstructive pulmonary disease) Mother COPD (chronic obstructive pulmonary disease) Cirrhosis Grandparent Cerebrovascular accident Social History Social History Smoking packs per day: 0.5 Smoking cigarettes per day: 10.0 Smoking status: Unknown if ever smoked Tobacco type: cigarettes Alcohol intake: current Drinks per week: 36 Substance use: current Substance use type: crack/cocaine Last use: 02/25 for both alcohol and cocaine use Lack of Transportation: No Lack of Food: Sometimes True Current Housing: I Have Housing Concerned About Future Housing: No Difficulty Paying Gas/Electric Bills: No Difficulty Paying for Meds: No Currently Unemployed: No Education: Trade/Vocational Certificate Difficulty w/ Childcare or Family Care: No Spiritual care concerns: No Exam Narrative: GENERAL: Visibly dyspneic and tachypneic. Awake and answering questions appropriately with conversational dyspnea HEAD: Normocephalic and atraumatic EYES: Pupils equal reactive to light, extraocular movements are intact ENT: Nares clear, no rhinorrhea or epistaxis. Mucous membranes moist. NECK: Supple. CHEST: No appreciable wheezing or prolonged expiratory phase. Good air entry but does have scattered bibasilar rales HEART: Tachycardic rate, regular rhythm. No murmur heard. Warm extremities with good pulses ABDOMEN: Protuberant, soft, nontender, no rigidity, no guarding or peritonitis EXTREMITIES: Normal range of motion. 2+ pitting edema SKIN: Warm, dry, no rash. NEURO: No focal deficits. Alert and oriented x3, answering all my questions appropriately. PSYCH: Normal Course Vital Signs Vital signs: Vital Signs Temperature 36.1 C L 03/10/25 00:28 Pulse Rate 117 H 03/10/25 00:28 Respiratory Rate 26 H 03/10/25 00:28 Blood Pressure 158/108 H 03/10/25 00:28 Pulse Oximetry 98 03/10/25 00:28 Oxygen Delivery Room Air 03/10/25 00:28 Temperature 36.0 C L 03/10/25 04:38 Pulse Rate 111 H 03/10/25 04:38 Respiratory Rate 22 H 03/10/25 04:38 Blood Pressure 136/96 H 03/10/25 04:38 Pulse Oximetry 94 03/10/25 05:02 Oxygen Delivery High Flow Therapy with Nasal Cannula 03/10/25 05:02 Oxygen Flow Rate 40 03/10/25 05:02 Fraction of Inspired Oxygen 40 03/10/25 05:02 [facility] MDM Narrative Medical decision making narrative: 44-year-old male with a past medical history including COPD, CHF, hypertension, diabetes, ROSA MARIA. Patient presents to the emergency department today with shortness of breath, exertional dyspnea and fluid retention. Patient was admitted to the hospital about 10 days ago for similar but left against medical advice as he states that he did not like the food that was provided to him in the hospital. Patient has a history of noncompliance per family members. Patient states he also has a history of alcohol use but denies any intoxication or withdrawal symptoms. He states he does not check his blood sugars at home. States that he has been taking Lasix for his fluid retention but ran out of this medication and just found 3 tablets of today and took them at home. States that he still getting fluid retaining on his legs and abdomen. He was getting worsening shortness of breath throughout the day and felt remorseful about leaving the hospital against medical advice and came back for evaluation. No chest pain or chest tightness. No nausea, vomiting, abdominal pain, back pain. His only complaint at this time is shortness of breath with rest and exertional component making it worse. Uses BiPAP at home. Patient does appear visibly dyspneic and tachypneic. He does have evidence of fluid overload on his body with anasarca, rales on examination. He is saturating well on room air but very tachypneic. Tachycardic. Blood pressure mildly elevated. Initially offered on BiPAP therapy to help with his breathing but patient declined and states he does not like the BiPAP in the hospital. I stated that he would benefit from some sort of respiratory support given his level of dyspnea tachypnea and we compromised on high-flow nasal cannula at this time. Respiratory therapy situated this and he is doing well. Given empiric Lasix for the fluid overload. Laboratory studies ordered. EKG shows no evidence of ischemia or any comparable interval change from prior EKG. VBG chest x-ray and broad cardiac workup ordered this time. His glucose is largely elevated but no ketosis and no signs of DKA or HHS. He was given IV push of Lasix and insulin. Glucose came down with insulin. He did require doses Ativan as he was very anxious with the nasal cannula. [place] better afterwards. Already urinated greater than 1200 cc of urine. Chest x-ray shows congestive changes consistent with CHF exacerbation. No leukocytosis or anemia. Normal platelet count. BNP is elevated. Troponin is around his baseline without any EKG evidence of acute ischemic event. Will trend. PH 7.41, pCO2 53. Bicarb 33. Acute respiratory alkalosis on chronic respiratory acidosis. Patient given a dose of potassium and repeat troponin not significantly elevated. Discussed with the hospitalist who accepted the patient to the IMU at this time for continued care, oxygen supplementation, continue diuresis. Differential Diagnosis Differential Diagnosis: COPD exacerbation, CHF exacerbation, pneumonia, ACS, drug use, medication noncompliance, DKA, HHS Lab Data [facility] Lab Attestation statement: I personally reviewed the patient's lab results. 03/10/25 00:42 03/10/25 00:42 Labs: Lab Results 03/10/25 03/10/25 03/10/25 Range/Units 00:41 00:42 00:42 WBC 8.4 (4.5-10.0) K/mm3 RBC 5.42 (4.6-6.20) M/mm3 Hgb 15.2 (14.0-18.0) g/dL Hct 45.7 (42.0-52.0) % MCV 84.3 (80-100) fl MCH 28.0 (26-34) pg MCHC 33.3 (32-36) g/dl RDW 14.6 H (11.5-14.5) % Plt Count 323 (150-375) k/mm3 MPV 10.5 H (7.4-10.4) fl Immature Gran % (Auto) 0.2 (0-0.5) % Neut % (Auto) 69.5 (45.5-73.1) % Lymph % (Auto) 21.6 (18.3-44.2) % [place] % (Auto) 6.3 (2.6-8.5) % Eos % (Auto) 2.0 (0-4.4) % Baso % (Auto) 0.4 (0.2-1.2) % Lymph # (Auto) 1.81 (0.9-3.2) K/mm3 [place] # (Auto) 0.5 (0.1-0.6) K/mm3 Eos # (Auto) 0.2 (0-0.3) K/mm3 Baso # (Auto) 0.0 (0.0-0.1) K/mm3 Abs Immat Gran (auto) 0.02 (0.00-0.031) K/mm3 Absolute Neuts (auto) 5.8 (1.3-6.7) K/mm3 Absolute Nucleated RBC 0.000 (0.0-0.012) K/mm3 Nucleated RBC % 0.0 (0.0-0.2) % Sodium 131 L (137-145) mmol/L Potassium 3.9 (3.4-5.0) mmol/L Chloride 93 L (98-107) mmol/L Carbon Dioxide 29 (22-30) mmol/L Anion Gap 9 (4-12) mmol/L BUN 24 H (9-20) mg/dL Creatinine 1.13 (0.7-1.3) mg/dL Estim Creat Clear Calc Not Reportable Estimated GFR > 60 (59 - ) Glucose 541 H* (65-110) mg/dL Calcium 9.0 (8.4-10.2) mg/dL Magnesium 1.2 L (1.6-2.3) mg/dL Total Bilirubin 0.5 (0.2-1.3) mg/dL AST 39 (17-59) U/L ALT 36 (6-50) U/L Alkaline Phosphatase 126 (38-126) U/L Troponin I 0.081 H* (0.000-0.034) ng/mL NT-Pro-B Natriuret Pep 4710 H Cancelled (19.9-100) pg/mL Total Protein 7.0 (6.3-8.2) g/dL Albumin 3.8 (3.5-5.1) g/dL Beta-Hydroxybutyrate/Acetoacetate 0.13 (0.02-0.27) mmol/L Urine Color (Yellow) Urine Appearance (Clear) Urine pH (5.0-9.0) Ur Specific [place] (1.001-1.035) Urine Protein (Negative) mg/dL Urine Glucose (UA) (Negative) mg/dL Urine Ketones (Negative) mg/dL Ur Blood (Man) (Negative) Urine Nitrate (Negative) Urine Bilirubin (Negative) Urine Urobilinogen (<2.0) mg/dL Leukocyte Esterase Rfl (Negative) CJ/UL Urine RBC (0-2) /hpf Urine WBC (0-3) /hpf Ur Squamous Epith Cells (Few) /hpf Urine Bacteria /hpf Urine Casts Urine Opiates Screen (Negative) Urine Methadone Screen (Negative) Ur Barbiturates Screen (Negative) Ur Phencyclidine Scrn (Negative) Ur Amphetamine Screen (Negative) U Benzodiazepines Scrn (Negative) Urine Cocaine Screen (Negative) U Cannabinoids Screen (Negative) Ethyl Alcohol < 10 (<10) mg/dL Influenza A (RT-PCR) Negative (Negative) Influenza B (RT-PCR) Negative (Negative) RSV (RT-PCR) Negative (Negative) SARS-CoV-2 RNA (RT-PCR) Negative (Negative) 03/10/25 Range/Units 01:23 WBC (4.5-10.0) K/mm3 RBC (4.6-6.20) M/mm3 Hgb (14.0-18.0) g/dL Hct (42.0-52.0) % MCV (80-100) fl MCH (26-34) pg MCHC (32-36) g/dl RDW (11.5-14.5) % Plt Count (150-375) k/mm3 MPV (7.4-10.4) fl Immature Gran % (Auto) (0-0.5) % Neut % (Auto) (45.5-73.1) % Lymph % (Auto) (18.3-44.2) % [place] % (Auto) (2.6-8.5) % Eos % (Auto) (0-4.4) % Baso % (Auto) (0.2-1.2) % Lymph # (Auto) (0.9-3.2) K/mm3 [place] # (Auto) (0.1-0.6) K/mm3 Eos # (Auto) (0-0.3) K/mm3 Baso # (Auto) (0.0-0.1) K/mm3 Abs Immat Gran (auto) (0.00-0.031) K/mm3 Absolute Neuts (auto) (1.3-6.7) K/mm3 Absolute Nucleated RBC (0.0-0.012) K/mm3 Nucleated RBC % (0.0-0.2) % Sodium (137-145) mmol/L Potassium (3.4-5.0) mmol/L Chloride (98-107) mmol/L Carbon Dioxide (22-30) mmol/L Anion Gap (4-12) mmol/L BUN (9-20) mg/dL Creatinine (0.7-1.3) mg/dL Estim Creat Clear Calc Estimated GFR (59 - ) Glucose (65-110) mg/dL Calcium (8.4-10.2) mg/dL Magnesium (1.6-2.3) mg/dL Total Bilirubin (0.2-1.3) mg/dL AST (17-59) U/L ALT (6-50) U/L Alkaline Phosphatase (38-126) U/L Troponin I (0.000-0.034) ng/mL NT-Pro-B Natriuret Pep (19.9-100) pg/mL Total Protein (6.3-8.2) g/dL Albumin (3.5-5.1) g/dL Beta-Hydroxybutyrate/Acetoacetate (0.02-0.27) mmol/L Urine Color Yellow (Yellow) Urine Appearance Clear (Clear) Urine pH 7.0 (5.0-9.0) Ur Specific [place] 1.012 (1.001-1.035) Urine Protein 1+ H (Negative) mg/dL Urine Glucose (UA) 3+ H (Negative) mg/dL Urine Ketones Negative (Negative) mg/dL Ur Blood (Man) Negative (Negative) Urine Nitrate Negative (Negative) Urine Bilirubin Negative (Negative) Urine Urobilinogen 0.2 (<2.0) mg/dL Leukocyte Esterase Rfl Negative (Negative) CJ/UL Urine RBC 0-2 (0-2) /hpf Urine WBC 0-5 (0-3) /hpf Ur Squamous Epith Cells None seen (Few) /hpf Urine Bacteria None seen /hpf Urine Casts 0-2 Urine Opiates Screen Negative (Negative) Urine Methadone Screen Negative (Negative) Ur Barbiturates Screen Negative (Negative) Ur Phencyclidine Scrn Negative (Negative) Ur Amphetamine Screen Negative (Negative) U Benzodiazepines Scrn Negative (Negative) Urine Cocaine Screen Positive A (Negative) U Cannabinoids Screen Negative (Negative) Ethyl Alcohol (<10) mg/dL Influenza A (RT-PCR) (Negative) Influenza B (RT-PCR) (Negative) RSV (RT-PCR) (Negative) SARS-CoV-2 RNA (RT-PCR) (Negative) ABG Data ABG results: 03/10/25 01:23 VBG pH 7.410 H* VBG pCO2 53.6 H VBG pO2 27.0 L VBG HCO3 33.2 H O2 Delivery Device Room air O2 Liters/Min Not Reportable Attestation: I personally reviewed and interpreted this ABG as follows: Interpretation: chronic respiratory acidosis with acute respiratory alkalosis Imaging Data Attestation: I personally reviewed and interpreted this imaging study as follows: My impression: Congestion Critical Care Time Critical Care Time Critical Care Time: Yes Time Type: Intermittent Initial evaluation, discuss w/ involved parties, attempting to gather old records: 10 minutes Documenting medical record: 5 minutes Review of results (EKG's, labs, imaging): 5 minutes Serial repeat bedside evaluation: 10 minutes Discussing case with multiple memebers of the care team and consultants: 5 minutes Total Critical Care Time: 35 Discharge Plan Discharge Clinical Impression: Diabetes, Alcohol abuse, Cocaine use Acute exacerbation of CHF (congestive heart failure) Qualifiers: Heart failure type: unspecified Qualified Code(s): I50.9 - Heart failure, unspecified HTN (hypertension) Qualifiers: Hypertension type: primary hypertension Qualified Code(s): I10 - Essential (primary) hypertension Patient Disposition: Still a Patient Condition: Stable
[2025-03-10 01:46] LABS: Cannabinoid Screen Urine Negative (Negative)
[2025-03-10 01:47] LABS: Troponin I 0.081 ng/mL (0.000-0.034)
[2025-03-10] MEDS: LORazepam INJ (*CRX) 2 MG/ML VIAL IV PUSH (01:59)
[2025-03-10] MEDS: FUROSEMIDE INJ 100 MG/10 ML VIAL 80 MG IV PUSH (01:59)
[2025-03-10] MEDS: POTASSIUM CHLORIDE INJ 40 MEQ in SODIUM CHLORIDE 0.9% IV 500 ML 130 MEQ IVPB (02:15)
[2025-03-10 02:49] LABS: Magnesium 1.2 mg/dL (1.6-2.3)
--- NOTE | 2025-03-10 03:01 | WPCEDHO ---
ED Hand Off Checklist All vitals saved:yes IV Site documented:yes All med administrations documented:yes Triage Note Triage Note pt presents to ED c/o worsening 03/10/25 00:40 SOB, per pt ran out of lasix. Pt states he was here last week for the same thing but left AMA. according to sister. she said he has not been taking lasix for months and just found some today and took 3 - 40mg tablets today. he has been increasingly sob for last few days Allergies No Known Allergies Allergy (Verified 02/28/25 16:44) Family History (Last Reviewed 03/10/25 @ 01:[address] MD) Father Cancer, colon Cancer Sibling Drug abuse Cancer, colon Congestive heart failure Myocardial infarction COPD (chronic obstructive pulmonary disease) Mother COPD (chronic obstructive pulmonary disease) Cirrhosis Grandparent Cerebrovascular accident Active Medications including assessments/comments Potassium Chloride 40 meq/ (Sodium Chloride) 520 mls @ 130 mls/hr IVPB ONCE STA Stop: 03/10/25 05:54 Last Admin: 03/10/25 02:15 Dose: 130 mls/hr Documented By: KEITH Infusion/Titration Document 03/10/25 02:15 KEITH (Rec: 03/10/25 02:15 W [id number]) Intake IV Site Peripheral Access Left Forearm Container Volume 520 Waste Amount 0 Dosing Infusion Rate 130 Increase/Decrease Started Elapsed Time Elapsed Time ( 0m minutes) Administered/Completed Medications Discontinued Medications Furosemide (Furosemide Inj 100 Mg/10 Ml Vial) 80 mg IV PUSH ONCE STA Stop: 03/10/25 01:41 Last Admin: 03/10/25 01:59 Dose: 80 mg Documented By: KEITH Insulin Human Regular (Insulin Human Regular (*Bkc) 100 Units/Ml) 12 units IV PUSH ONCE ONE Stop: 03/10/25 01:15 Last Admin: 03/10/25 01:40 Dose: 12 units Documented By: KEITH Co-signed By: SAGAR Lorazepam (Lorazepam Inj (*Crx) 2 Mg/Ml Vial) 2 mg IV PUSH ONCE ONE Stop: 03/10/25 01:53 Last Admin: 03/10/25 01:59 Dose: 2 mg Documented By: KEITH Interventions/Assessments IV / Saline Lock, Insert Start: 03/10/25 00:38 Freq: STAT Status: Active Protocol: Document 03/10/25 00:38 CAH (Rec: 03/10/25 00:39 CAH [id number]) IV Assessment Peripheral Access Left Forearm IV Catheter Access Initiated IV Insertion Date 03/10/25 IV Insertion Time 00:39 Catheter Gauge 18 IV Insertion 1 Attempts Ultrasound Used for No Placement IV Site Assessment WNL IV Care and WNL Maintenance PA: Cardiovascular Assessment Start: 03/10/25 00:28 Freq: Status: Active Protocol: Document 03/10/25 00:42 SRW (Rec: 03/10/25 00:43 SRW [id number]) Cardiovascular Assessment Cardiovascular None Symptoms PA: Respiratory Assessment Start: 03/10/25 00:28 Freq: Status: Active Protocol: Document 03/10/25 00:43 SRW (Rec: 03/10/25 00:43 SRW [id number]) Respiratory Assessment Symptoms Shortness of Breath With Exertion,Unable to Lie Flat Last Vital Signs Temperature 96.9 F L 03/10/25 00:28 Pulse Rate 115 H 03/10/25 02:01 Respiratory Rate 22 H 03/10/25 02:01 Pulse Oximetry 100 03/10/25 02:01 Blood Pressure 148/111 H 03/10/25 02:01 Blood Pressure Mean 123 03/10/25 02:01 Blood Pressure Position Supine 03/10/25 02:01 Oxygen Delivery High Flow Therapy with Nasal Cannula 03/10/25 01:27 Oxygen Flow Rate 40 03/10/25 01:27 Fraction of Inspired Oxygen 40 03/10/25 01:27 Last Result - Abnormals Only RDW 14.6 % (11.5-14.5) H 03/10/25 00:42 MPV 10.5 fl (7.4-10.4) H 03/10/25 00:42 VBG pH 7.410 (7.300-7.400) H* 03/10/25 01:23 VBG pCO2 53.6 mmHg (42.0-48.0) H 03/10/25 01:23 VBG pO2 27.0 mmHg (35.0-45.0) L 03/10/25 01:23 VBG HCO3 33.2 mEq/l (24.0-30.0) H 03/10/25 01:23 Sodium 131 mmol/L (137-145) L 03/10/25 00:42 Chloride 93 mmol/L (98-107) L 03/10/25 00:42 BUN 24 mg/dL (9-20) H 03/10/25 00:42 Glucose 541 mg/dL (65-110) H* 03/10/25 00:42 POC Capillary Glucose 227 mg/dl (65-105) H 03/10/25 02:31 Magnesium 1.2 mg/dL (1.6-2.3) L 03/10/25 00:42 Troponin I 0.081 ng/mL (0.000-0.034) H* 03/10/25 00:41 NT-Pro-B Natriuret Pep 4710 pg/mL (19.9-100) H 03/10/25 00:42 Urine Protein 1+ mg/dL (Negative) H 03/10/25 01:23 Urine Glucose (UA) 3+ mg/dL (Negative) H 03/10/25 01:23 Urine Cocaine Screen Positive (Negative) A 03/10/25 01:23 Most Recent Suicide Severity Rating Suicide Severity Rating NO RISK INDICATED 03/10/25 00:40
--- NOTE | 2025-03-10 03:25 | ADMGEN ---
This patient, Redd Michel, was admitted to IMU Room 213-01. Patient/family oriented to hospital policies and general routines including ID bracelet, bed and alarms, visiting hours, pain management, procedures, bathroom and other care routines, personal items, smoking policy, room service/diet, and visiting hours. Information on how to activate the Rapid Response Team has been discussed. Patient/Family are encouraged to report perceived risks to care and to ask questions if they do not understand what they are told or what they should do.
[2025-03-10] MEDS: MAGNESIUM SULF 4 GM/WATER100ML 4 GM/100 ML BAG IVPB (03:37)
[2025-03-10 04:56] LABS: Troponin I 0.089 ng/mL (0.000-0.034)
--- NOTE | 2025-03-10 09:38 | PM.IMHP2 ---
H&P: HPI History of Present Illness Date/Time: 03/10/25 09:38 Chief Complaint: Shortness of breath Narrative: 44yo male with CHF, COPD, HTN, DM and ROSA MARIA here for shortness of breath. Patient was here 02/28/25 with complaints of edema and shortness of breath and found to have CHF exacerbation treated with Lasix IV. He signed himself out against medical advise the following day. Patient is oriented but very somnolent so history is somewhat difficult to obtain. Over the past 10 days, patient has increasing abdominal distension and increasing lower extremity edema. He has been wheezing with cough productive clear sputum. No fever or chills. He has been compliant with his CPAP. He has had PND and nocturia which has increased over the past 10 days. He did run out of his Lasix. He did find 3 Lasix tablets just prior to admission and took them at home before coming to the emergency room. He is alcoholic and his last drink was about 2 days ago. Normally drinks 12 beers and and occasionally spirits. He uses powder cocaine and denies any history of IV drug use. He has been off insulin at home and does not check his glucose at home. He has a hx of noncompliance. He presented to the emergency room because of increasing shortness of breath. In the ED, he was hypertensive (158/108), tachycardic at 117 and tachypneic (26) but afebrile and not hypoxic. COVID, RSV and influenza PCR negative. EKG showing sinus tachycardia, occasional PVCs, LAD, LAE, LAFB and borderline ST-T wave changes lateral and high lateral leads but not change from prior EKG on 02/28. CXR showing unilateral right lung pulmonary edema and/or airspace disease and possible pericardial effusion. CBC was normal. VBG 7.41/54/27/33 on RA. Sodium 131, Cl 93, BUN 24 and glucose 541. Mag 1.2. BNP 4710. Trop to 0.089. BOHB normal. UA showing 3+ glucose and 1+ protein but no evidence of infection. UDS positive for cocaine. He was given 12 units of regular insulin, Lasix 80 mg IV once, magnesium, potassium and Ativan 2 mg IV. He was admitted for further care. Review of Systems Review of Systems: All systems reviewed & are unremarkable except as noted in HPI and below PMFSH Past Medical History Medical History (Updated 03/10/25 @ 10:34 by Ankur Patino MD) COPD (chronic obstructive pulmonary disease) Acute exacerbation of CHF (congestive heart failure) Cocaine use ROSA MARIA (obstructive sleep apnea) Hyperlipidemia Alcohol abuse Diabetes HTN (hypertension) Family History Family History Father Cancer, colon Cancer Sibling Drug abuse Cancer, colon Congestive heart failure Myocardial infarction COPD (chronic obstructive pulmonary disease) Mother COPD (chronic obstructive pulmonary disease) Cirrhosis Grandparent Cerebrovascular accident Social History Social History (Updated 03/10/25 @ 10:28 by Ankur Patino MD) Social History: Patient smokes half a pack a day. Drug use as mentioned above. Alcohol use as mentioned above. He lives at home with his sister. Surrogate decision maker: Dalia Michel Code status: Full Smoking packs per day: 0.5 Smoking cigarettes per day: 10.0 Smoking status: Unknown if ever smoked Tobacco type: cigarettes Alcohol intake: current Drinks per week: 36 Substance use: current Substance use type: crack/cocaine Last use: 02/25 for both alcohol and cocaine use Lack of Transportation: No Lack of Food: Sometimes True Current Housing: I Have Housing Concerned About Future Housing: No Difficulty Paying Gas/Electric Bills: No Difficulty Paying for Meds: No Currently Unemployed: No Education: Trade/Vocational Certificate Difficulty w/ Childcare or Family Care: No Spiritual care concerns: No Meds Home Medications and Allergies Home Medications ?Medication ?Instructions ?Recorded ?Confirmed ?Type apixaban 5 mg tablet (Eliquis) 5 mg PO Q12H 02/28/25 03/10/25 History aspirin 81 mg tablet,delayed 81 mg PO DAILY 02/28/25 03/10/25 History release (Adult Low Dose Aspirin) empagliflozin 25 mg tablet 25 mg PO DAILY 02/28/25 03/10/25 History (Jardiance) fenofibrate 150 mg capsule 150 mg PO HS 02/28/25 03/10/25 History furosemide 40 mg tablet (Lasix) 40 mg PO DAILY 02/28/25 03/10/25 History insulin aspart U-100 100 unit/mL 20 unit subcut TID 02/28/25 03/10/25 History (3 mL) subcutaneous pen (Novolog FlexPen U-100 Insulin aspart) insulin glargine 100 unit/mL 60 unit subcut QPM 02/28/25 03/10/25 History subcutaneous solution (Lantus U-100 Insulin) lisinopril 20 mg tablet 20 mg PO DAILY 02/28/25 03/10/25 History metformin 1,000 mg tablet 1,000 mg PO BID 02/28/25 03/10/25 History metoprolol succinate 100 mg 100 mg PO DAILY 02/28/25 03/10/25 History tablet,extended release 24 hr rosuvastatin 40 mg tablet 40 mg PO DAILY 02/28/25 03/10/25 History tirzepatide 2.5 mg/0.5 mL 2.5 mg subcut WEEKLY 02/28/25 03/10/25 History subcutaneous pen injector (Mounsaleemro) Allergies Allergy/AdvReac Type Severity Reaction Status Date / Time No Known Allergies Allergy Verified 03/10/25 04:57 Vital Signs Vital Signs - 24 hr 03/10/25 00:28 03/10/25 01:27 03/10/25 02:01 Temperature 96.9 F L Pulse Rate 117 H 115 H Respiratory Rate 26 H 22 H Blood Pressure 158/108 H 148/111 H Pulse Oximetry 98 97 100 Oxygen Delivery Room Air High Flow Therapy with Na Oxygen Flow Rate 40 Fraction of Inspired Oxygen 40 03/10/25 04:00 03/10/25 04:38 03/10/25 05:02 Temperature 96.8 F L Pulse Rate 111 H 111 H Respiratory Rate 22 H Blood Pressure 136/96 H Pulse Oximetry 97 94 Oxygen Delivery High Flow Therapy with Na Oxygen Flow Rate 40 Fraction of Inspired Oxygen 40 03/10/25 06:00 03/10/25 08:00 03/10/25 08:36 Temperature 97.5 F L Pulse Rate 109 H 105 H Respiratory Rate 16 Blood Pressure 132/89 Pulse Oximetry 97 94 Oxygen Delivery Room Air Oxygen Flow Rate Fraction of Inspired Oxygen Exam Narrative: AF 97.5 132/89 105 16 94% ra Gen - well appearing male in no acute respiratory distress who is nontoxic-appearing sitting at the side of the bed HEENT - normocephalic. Atraumatic. Pupils equal round and reactive. Extraocular motions intact. Sclera injected. Nares patent. Oropharynx was poorly visualized. No oral lesions. Moist mucous membranes. Tongue was midline. Palate sathish symmetrically. No facial asymmetry. Neck - neck was supple. No dominant adenopathy, thyromegaly or masses. Chest - distant BS with few bibasilar crackles and end-expiratory wheezes appreciated (mostly anteriorly). nml RR CV - tachycardic, regular. S1-S2. No murmurs gallops or rubs. Tele showing sinus tachycardia with occasional PVCs Abd - abdomen was soft. Obese. Nontender. Positive bowel sounds. No organomegaly or masses. Ext - trace edema. 2+ DP pulses bilaterally. Neuro - patient is oriented x4 but very somnolent with falling asleep when trying to obtain hx. No focal weakness. Speech is clear. Psych - sleepy Skin - warm and dry. Very faint erythema lower panus Results Labs Labs: Short CBC 03/10/25 Range/Units 00:42 WBC 8.4 (4.5-10.0) K/mm3 Hgb 15.2 (14.0-18.0) g/dL Hct 45.7 (42.0-52.0) % Plt Count 323 (150-375) k/mm3 BMP 03/10/25 00:42 Sodium 131 L Potassium 3.9 Chloride 93 L Carbon Dioxide 29 BUN 24 H Creatinine 1.13 Glucose 541 H* Calcium 9.0 Cardiac Enzymes 03/10/25 03/10/25 Range/Units 00:41 03:41 Troponin I 0.081 H* 0.089 H* (0.000-0.034) ng/mL Liver Function 03/10/25 Range/Units 00:42 Total Bilirubin 0.5 (0.2-1.3) mg/dL AST 39 (17-59) U/L ALT 36 (6-50) U/L Alkaline Phosphatase 126 (38-126) U/L Albumin 3.8 (3.5-5.1) g/dL Urine 03/10/25 Range/Units 01:23 Urine Color Yellow (Yellow) Urine Appearance Clear (Clear) Urine pH 7.0 (5.0-9.0) Ur Specific [place] 1.012 (1.001-1.035) Urine Protein 1+ H (Negative) mg/dL Urine Glucose (UA) 3+ H (Negative) mg/dL Assessment and Plan Assessment and plan (1) Acute exacerbation of CHF (congestive heart failure): Qualifiers: Heart failure type: unspecified Qualified Code(s): I50.9 - Heart failure, unspecified Code(s): I50.9 - Heart failure, unspecified Status: Acute Assessment and Plan: Patient presents with SOB and most likely related to acute CHF. Consider other components such as COPD, tobacco abuse, ROSA MARIA contributing to his symptoms. Patient treated with Lasix and voided 1200 mL while still in the ER. BNP 4710 Chest x-ray shows unilateral right lung pulmonary edema and large cardiac silhouette. No echo on file. Resume IV Lasix. Check echocardiogram. Resume Jardiance. Will hold off on resuming lisinopril until echo results are known. Hold beta-carlie since patient is positive for cocaine. Monitor renal function, urine output daily weights. CHF teaching (2) Elevated troponin: Code(s): R79.89 - Other specified abnormal findings of blood chemistry Status: Acute Assessment and Plan: Troponin elevated to 0.089. EKG showing sinus tachycardia, occasional PVCs, LAD, LAE, LAFB and borderline ST-T wave changes lateral and high lateral leads but not change from prior EKG on 02/28. Probably related to stress response from CHF exacerbation and cocaine. Check echocardiogram. Serial troponin until peak. Most likely will need ischemic evaluation at some point given his multiple risk factors. (3) Hypomagnesemia: Code(s): E83.42 - Hypomagnesemia Status: Acute Assessment and Plan: Magnesium 1.2. Potassium 3.9. Magnesium and potassium were replaced. Follow-up on repeat levels and continue to replace as needed. (4) Diabetes: Code(s): E11.9 - Type 2 diabetes mellitus without complications Status: Chronic Assessment and Plan: Glucose was 541 on admission. Related to noncompliance with his insulin regimen. Hemoglobin A1c was 11.8% on 03/01/2025. Will start Lantus and mealtime NovoLog. Start AccuCheks covering with sliding scale. Hypoglycemia protocol available as needed. Diabetic diet (5) Alcohol abuse: Code(s): F10.10 - Alcohol abuse, uncomplicated Status: Chronic Assessment and Plan: Patient at risk for alcohol withdrawal. Will start CIWA protocol. Start thiamine and folate. Will have Librium available as needed for anxiety and evidence of mild alcohol withdrawal. Will use Ativan IV for more moderate-severe symptoms of withdrawal. He was educated about the benefits of abstaining from alcohol use. (6) Cocaine use: Code(s): F14.90 - Cocaine use, unspecified, uncomplicated Status: Acute Assessment and Plan: Patient admits using cocaine. He denies history of IV drug use. He refuses HIV and hepatitis testing at this time. No history of HIV or hepatitis he is aware of. He was educated about the benefits of abstaining from drug use. (7) HTN (hypertension): Qualifiers: Hypertension type: primary hypertension Qualified Code(s): I10 - Essential (primary) hypertension Code(s): I10 - Essential (primary) hypertension Status: Chronic Assessment and Plan: Blood pressure elevated on admission felt related to anxiety, shortness of breath and cocaine Blood pressure better controlled was likely related to the Ativan and improved fluid status. Continue to monitor and adjust medications accordingly. (8) COPD (chronic obstructive pulmonary disease): Code(s): J44.9 - Chronic obstructive pulmonary disease, unspecified Status: Acute Assessment and Plan: Patient with some faint wheezing. He may have a mild COPD exacerbation contributing to his shortness of breath. Will add Xopenex and Atrovent nebulizers p.r.n. for shortness of breath. (9) ROSA MARIA (obstructive sleep apnea): Code(s): G47.33 - Obstructive sleep apnea (adult) (pediatric) Status: Acute Assessment and Plan: Patient the history of sleep apnea and is compliant with his CPAP. Continue CPAP at bedtime and with naps. Plan DVT prophylaxis -patient has Eliquis listed but unclear on why he is on this medication. Will resume Code status -full Prior Studies I have reviewed the following patient records and this information was taken into consideration when formulating the assessment and plan.: previous labs, previous ER visits and previous hospitalizations
--- NOTE | 2025-03-10 10:44 | PC.NURSE ---
RN enter patient room for morning assessment. Urinal was found spilt on floor, patient undressed in bed. Patient alert and oriented. When RN asked what had happened patient stated You guys should have taken care of me the first time, you bitch. RN asked patient to refrain from using profanities and patient did not agree he is using profanities. Patient refusing assessment.
[2025-03-10] MEDS: ASPIRIN 81 MG ENTERIC TABLET PO (12:28)
[2025-03-10] MEDS: FOLIC ACID 1 MG TABLET PO (12:28)
[2025-03-10] MEDS: APIXABAN 5 MG TABLET PO ×2 (12:28→20:12)
[2025-03-10] MEDS: INSULIN ASPART (*BKC) 100 UNITS/ML SUB-Q ×4 (12:29→17:01)
[2025-03-10] MEDS: FUROSEMIDE INJ 40 MG/4 ML VIAL IV PUSH ×2 (12:30→17:00)
[2025-03-10] MEDS: THIAMINE HCL 200 MG/2 ML VIAL 100 MG IV PUSH (12:34)
[2025-03-10 14:56] LABS: Troponin I 0.075 ng/mL (0.000-0.034)
--- NOTE | 2025-03-10 15:54 | PC.NURSE ---
educated patient on Doctor's orders of a fluid restriction of 1500/24 hr and why this is important. Patient refuses and keeps getting water from the bathroom sink.
[2025-03-10 17:54] LABS: Total Protein Urine Random 246 mg/dL; Ur Ttl Prot Creatinine Ratio 4.11 mg/mg (0-0.20)
[2025-03-10] MEDS: INSULIN GLARGINE (*BKC) 100 UNITS/ML 30 UNITS SUB-Q (20:47)
[2025-03-11] VITALS (17 sets, daily range): BP systolic 108–136; BP diastolic 66–90; PULSE 80–119; RESP 16–24; TEMP 36.5–36.8; O2SAT 95–99
--- NOTE | 2025-03-11 02:04 | PC.NURSE ---
Pt is noncompliant and uncooperative with fluid restriction, diet, and cardiac monitoring. Pt has ordered large amount of outside food, despite being advised not to; has consumed at least 3.5L of fluid (at time of writing) and gets water from bathroom sink in spite of being educated on the importance of complying with fluid restriction; pt has removed front desk monitor after being told that it needed to stay on several times; continues to disturb restful environment after multiple requests and reminders to lower volume.
[2025-03-11 04:33] LABS: Hematocrit 46.2 % (42.0-52.0); Hemoglobin 14.9 g/dL (14.0-18.0); Immature Granulocyte Percent A 0.7 % (0-0.5); Lymphocytes Absolute Auto 1.88 K/mm3 (0.9-3.2); Mean Corpuscular HGB Conc 32.3 g/dl (32-36); Mean Corpuscular Hemoglobin 27.6 pg (26-34); Mean Corpuscular Volume 85.6 fl (80-100); Nucleated Red Blood Cells Absolute Auto 0.000 K/mm3 (0.0-0.012); Nucleated Red Blood Cells Perc 0.0 % (0.0-0.2); Platelet Count Result 347 k/mm3 (150-375); Red Blood Count 5.40 M/mm3 (4.6-6.20); White Blood Count 9.0 K/mm3 (4.5-10.0)
[2025-03-11 04:58] LABS: Alanine Aminotransferase 26 U/L (6-50); Albumin Level 3.8 g/dL (3.5-5.1); Alkaline Phosphatase 125 U/L (38-126); Anion Gap 5 mmol/L (4-12); Aspartate Amino Transferase 24 U/L (17-59); Bilirubin,Total 0.5 mg/dL (0.2-1.3); Blood Urea Nitrogen 35 mg/dL (9-20); Calcium 8.9 mg/dL (8.4-10.2); Carbon Dioxide 31 mmol/L (22-30); Chloride 96 mmol/L (98-107); Cholesterol 171 mg/dL (0-200); Estimated CRCL calculation 86 ml/min; Estimated Glomerular Filt Rate > 60; Glucose 509 mg/dL (65-110); HDL Direct 37 mg/dL; Magnesium 1.8 mg/dL (1.6-2.3); Potassium 4.3 mmol/L (3.4-5.0); Sodium 132 mmol/L (137-145); Total Protein 7.1 g/dL (6.3-8.2); Triglycerides 262 mg/dL (<150)
[2025-03-11 05:12] LABS: Thyroid Stimulating Hormone Reflex 1.860 uIU/mL (0.465-4.68)
[2025-03-11] MEDS: INSULIN ASPART (*BKC) 100 UNITS/ML 12 UNITS SUB-Q (05:24)
[2025-03-11] MEDS: FOLIC ACID 1 MG TABLET PO (09:26)
[2025-03-11] MEDS: EMPAGLIFLOZIN 25 MG TABLET PO (09:26)
[2025-03-11] MEDS: ROSUVASTATIN 20 MG TABLET 40 MG PO (09:26)
[2025-03-11] MEDS: APIXABAN 5 MG TABLET PO ×2 (09:26→21:44)
[2025-03-11] MEDS: ASPIRIN 81 MG ENTERIC TABLET PO (09:26)
[2025-03-11] MEDS: INSULIN ASPART (*BKC) 100 UNITS/ML SUB-Q ×2 (09:30→12:51)
[2025-03-11] MEDS: SACUBITRIL/VALSARTAN 24-26 MG TABLET 1 TAB PO ×2 (09:35→21:44)
[2025-03-11] MEDS: THIAMINE HCL 200 MG/2 ML VIAL 100 MG IV PUSH (09:35)
[2025-03-11] MEDS: SPIRONOLACTONE 25 MG TABLET PO (09:35)
[2025-03-11] MEDS: FUROSEMIDE INJ 40 MG/4 ML VIAL IV PUSH ×2 (09:35→16:57)
--- NOTE | 2025-03-11 11:24 | PM.CNCAR ---
Assessment and Plan Assessment and plan (1) Acute systolic heart failure: Code(s): I50.21 - Acute systolic (congestive) heart failure Status: Acute (2) HTN (hypertension): Qualifiers: Hypertension type: primary hypertension Qualified Code(s): I10 - Essential (primary) hypertension Code(s): I10 - Essential (primary) hypertension Status: Chronic (3) Hyperlipidemia: Qualifiers: Hyperlipidemia type: unspecified Qualified Code(s): E78.5 - Hyperlipidemia, unspecified Code(s): E78.5 - Hyperlipidemia, unspecified Status: Chronic (4) Alcohol abuse: Code(s): F10.10 - Alcohol abuse, uncomplicated Status: Chronic (5) Cocaine use: Code(s): F14.90 - Cocaine use, unspecified, uncomplicated Status: Acute (6) CAD (coronary artery disease): Code(s): I25.10 - Atherosclerotic heart disease of ione coronary artery without angina pectoris Status: Acute Plan 44-year-old male with history of congestive heart failure, HFrEF (LVEF 35%), CAD (per patient- [place] 9 years ago s/p 2 stents, PCI 1 year ago with 1 stent and 1 stent to restenosis- all at [facility]), hyperlipidemia, hypertension, diabetes mellitus, alcohol abuse, obstructive sleep apnea, cocaine use, COPD with Acute on chronic systolic and diastolic heart failure- LVEF 35% by TTE 02/28/2025, not sure if this is new or if pt had low EF when he lived in [place] CAD s/p 3 stents in the past Elevated troponin (0.081, 0.089, 0.075) without chest pain - most likely secondary to acute heart failure Cocaine and alcohol abuse; UDS positive for cocaine Plan: Diurese with IV lasix 40 mg BID Check daily weight, ins and outs, and renal function Check and replace electrolytes to keep K>4 and Mg>2 GDMT- continue lisinopril, empagliflozin HOld metoprolol given cocaine positive He is on Eliquis but not known why he is on this. Will need to obtain medical records from hospital in [place] for information if he has any history of A fib, PE, or DVT Troponin elevated but mostly flat and without chest pain. Down trending now Continue asa, statin for CAD Obtain records of prior echo and cath from [facility] Will need stress test vs cath to evaluate ischemia as cause of depressed LVEF if this is new, particularly given his history of prior PCI Counseled about stopping alcohol and cocaine use Cardiology will continue to follow History of Present Illness History of Present Illness Consult date/time: 03/11/25 11:24 Reason For Visit: CHF exacerbation,uncontrolled diabetes,volume over Narrative: 44-year-old male with history of congestive heart failure, HFrEF (LVEF 35%), CAD (per patient- [place] 9 years ago s/p 2 stents, PCI 1 year ago with 1 stent and 1 stent to restenosis- all at [facility] in [place]), hyperlipidemia, hypertension, diabetes mellitus, alcohol abuse, obstructive sleep apnea, cocaine use, COPD was admitted with chief complaints of shortness of breath, leg swelling, and weight gain. Patient states he used to live in [place], [place] before moving to [facility]. While he was there, his heart failure symptoms all started initially in November of this year after he had Pneumonia. He states that he did not get enough lasix pills when he was discharged from the hospital there until his move to [facility]. He had recurrent heart failure here and was admitted to [facility] on 02/28/25. He was being diuresed with Lasix IV but he left AMA the following day. He states that he was not given enough lasix and also he has a lot of medical bills due to which he did not want to stay. After he went home, he did not have enough PO lasix. He had increasing SOB, abdominal distension, and lower extremity edema. He also has cough productive of clear sputum without any fever or chills. He has been compliant with his CPAP. He has had PND and nocturia which has increased over the past 10 days. He is alcoholic and his last drink was about 2 days ago. Normally drinks 12 beers and and occasionally spirits. He uses powder cocaine and denies any history of IV drug use. He has been off insulin at home and does not check his glucose at home. He states that the past two years of his life have been very stressful due to loss of some immediate family members. Troponin and NT Pro BNP are elevated. Cardiology is consulted for further recommendations for congestive heart failure. Workup: Creatinine 1.24 NT proBNP 4710 Troponin 0.081, 0.089, 0.075 EKG: Sinus tachycardia, occasional PVCs, left anterior fascicular blocks, STT wave changes in lateral leads (no change compared to EKG from 02/28/2025) COVID, RSV and influenza PCR negative Urine drug screen positive for cocaine Chest x-ray: IMPRESSION: 1. Unilateral right lung pulmonary edema and/or airspace disease. 2. Pericardial effusion not excluded. TTE 03/10/25: LVEF 35%, RV systolic function depressed, trace aortic regurgitation, mild mitral regurgitation, [id number] tricuspid regurgitation, mild pulmonary hypertension with PASP of 37 mm Hg Review of Systems Review of Systems: A complete review of systems was performed and pertinent positives are reported in the HPI. [facility] Past Medical History Medical History (Updated 03/11/25 @ 12:06 by Chikis England MD) COPD (chronic obstructive pulmonary disease) Acute exacerbation of CHF (congestive heart failure) Cocaine use ROSA MARIA (obstructive sleep apnea) Hyperlipidemia Alcohol abuse Diabetes HTN (hypertension) Family History Family History Father Cancer, colon Cancer Sibling Drug abuse Cancer, colon Congestive heart failure Myocardial infarction COPD (chronic obstructive pulmonary disease) Mother COPD (chronic obstructive pulmonary disease) Cirrhosis Grandparent Cerebrovascular accident Social History Social History (Updated 03/10/25 @ 10:28 by Ankur Patino MD) Social History: Patient smokes half a pack a day. Drug use as mentioned above. Alcohol use as mentioned above. He lives at home with his sister. Surrogate decision maker: Dalia Michel Code status: Full Smoking packs per day: 0.5 Smoking cigarettes per day: 10.0 Smoking status: Unknown if ever smoked Tobacco type: cigarettes Alcohol intake: current Drinks per week: 36 Substance use: current Substance use type: crack/cocaine Last use: 02/25 for both alcohol and cocaine use Lack of Transportation: No Lack of Food: Sometimes True Current Housing: I Have Housing Concerned About Future Housing: No Difficulty Paying Gas/Electric Bills: No Difficulty Paying for Meds: No Currently Unemployed: No Education: Trade/Vocational Certificate Difficulty w/ Childcare or Family Care: No Spiritual care concerns: No Meds Home Medications and Allergies Home Medications ?Medication ?Instructions ?Recorded ?Confirmed ?Type apixaban 5 mg tablet (Eliquis) 5 mg PO Q12H 02/28/25 03/10/25 History aspirin 81 mg tablet,delayed 81 mg PO DAILY 02/28/25 03/10/25 History release (Adult Low Dose Aspirin) empagliflozin 25 mg tablet 25 mg PO DAILY 02/28/25 03/10/25 History (Jardiance) fenofibrate 150 mg capsule 150 mg PO HS 02/28/25 03/10/25 History furosemide 40 mg tablet (Lasix) 40 mg PO DAILY 02/28/25 03/10/25 History insulin aspart U-100 100 unit/mL 20 unit subcut TID 02/28/25 03/10/25 History (3 mL) subcutaneous pen (Novolog FlexPen U-100 Insulin aspart) insulin glargine 100 unit/mL 60 unit subcut QPM 02/28/25 03/10/25 History subcutaneous solution (Lantus U-100 Insulin) lisinopril 20 mg tablet 20 mg PO DAILY 02/28/25 03/10/25 History metformin 1,000 mg tablet 1,000 mg PO BID 02/28/25 03/10/25 History metoprolol succinate 100 mg 100 mg PO DAILY 02/28/25 03/10/25 History tablet,extended release 24 hr rosuvastatin 40 mg tablet 40 mg PO DAILY 02/28/25 03/10/25 History tirzepatide 2.5 mg/0.5 mL 2.5 mg subcut WEEKLY 02/28/25 03/10/25 History subcutaneous pen injector (Iselaro) Allergies Allergy/AdvReac Type Severity Reaction Status Date / Time No Known Allergies Allergy Verified 03/10/25 04:57 Vital Signs Vital Signs - 24 hr 03/10/25 12:00 03/10/25 12:00 03/10/25 12:00 Temperature 37.0 C Pulse Rate 110 H 109 H Respiratory Rate 24 H Blood Pressure 144/94 H Pulse Oximetry 95 95 Oxygen Delivery Room Air 03/10/25 14:00 03/10/25 16:00 03/10/25 16:00 Temperature Pulse Rate 107 H 110 H Respiratory Rate Blood Pressure Pulse Oximetry 95 Oxygen Delivery Room Air 03/10/25 16:00 03/10/25 18:00 03/10/25 20:00 Temperature 36.6 C 36.6 C Pulse Rate 108 H 109 H 110 H Respiratory Rate 16 98 H Blood Pressure 135/89 129/105 H Pulse Oximetry 97 16 L Oxygen Delivery 03/10/25 20:00 03/10/25 22:00 03/10/25 23:28 Temperature Pulse Rate 104 H 117 H Respiratory Rate Blood Pressure Pulse Oximetry Oxygen Delivery CPAP 03/10/25 23:45 03/11/25 00:00 03/11/25 02:00 Temperature 36.3 C L Pulse Rate 54 L 119 H 117 H Respiratory Rate 16 Blood Pressure 152/107 H Pulse Oximetry 99 Oxygen Delivery 03/11/25 02:25 03/11/25 04:00 03/11/25 04:00 Temperature 36.7 C Pulse Rate 117 H 112 H 112 H Respiratory Rate 16 Blood Pressure 129/90 Pulse Oximetry 95 Oxygen Delivery 03/11/25 04:04 03/11/25 06:00 03/11/25 07:36 Temperature Pulse Rate 112 H 104 H 107 H Respiratory Rate Blood Pressure Pulse Oximetry 97 Oxygen Delivery Room Air 03/11/25 08:00 03/11/25 08:00 03/11/25 10:00 Temperature 36.7 C Pulse Rate 111 H 111 H 112 H Respiratory Rate 16 Blood Pressure 136/84 Pulse Oximetry 98 Oxygen Delivery Exam Narrative: General: Alert oriented x3, no acute distress Neck: Supple, JVD + Chest: Right mid to basal lung crackles present, no rhonchi, wheezing present bilaterally Cardiac: S1, S2 +, regular rate, regular rhythm, no murmurs or rubs Extremities: Bilateral lower extremity edema 1+, no skin rash Neurologic: Alert and oriented x3, no focal neurological deficits Results Labs and Meds 03/11/25 04:16 03/11/25 04:16 Lab results: Cardiac Enzymes 03/10/25 03/11/25 Range/Units 14:03 04:16 AST 24 (17-59) U/L Troponin I 0.075 H* (0.000-0.034) ng/mL Lipids 03/11/25 Range/Units 04:16 Triglycerides 262 H (<150) mg/dL Cholesterol 171 (0-200) mg/dL CBC 03/11/25 Range/Units 04:16 WBC 9.0 (4.5-10.0) K/mm3 RBC 5.40 (4.6-6.20) M/mm3 Hgb 14.9 (14.0-18.0) g/dL Hct 46.2 (42.0-52.0) % Plt Count 347 (150-375) k/mm3 Lymph # (Auto) 1.88 (0.9-3.2) K/mm3 Rice # (Auto) 0.6 (0.1-0.6) K/mm3 Eos # (Auto) 0.2 (0-0.3) K/mm3 Baso # (Auto) 0.0 (0.0-0.1) K/mm3 Comprehensive Metabolic Panel 03/11/25 Range/Units 04:16 Sodium 132 L (137-145) mmol/L Potassium 4.3 (3.4-5.0) mmol/L Chloride 96 L (98-107) mmol/L Carbon Dioxide 31 H (22-30) mmol/L BUN 35 H D (9-20) mg/dL Creatinine 1.24 (0.7-1.3) mg/dL Glucose 509 H* (65-110) mg/dL Calcium 8.9 (8.4-10.2) mg/dL AST 24 (17-59) U/L ALT 26 (6-50) U/L Alkaline Phosphatase 125 (38-126) U/L Total Protein 7.1 (6.3-8.2) g/dL Albumin 3.8 (3.5-5.1) g/dL Intake and Output 03/10/25 03/11/25 03/11/25 23:59 07:59 15:59 Intake Total 480 3600 240 Output Total 3400 500 Balance -2920 3100 240 Intake: Oral 480 3600 240 Output: Urine 3400 500 Other: # Unmeasured Voids 2 2 Patient Weight 03/11/25 23:59 Weight 113 kg
--- NOTE | 2025-03-11 12:28 | PC.NURSE ---
patient refuses seizure pads, patient educated on use of seizure pads. patient continues to refuse.
[2025-03-11] MEDS: INSULIN ASPART (*BKC) 100 UNITS/ML 10 UNITS SUB-Q ×2 (12:52→16:57)
--- NOTE | 2025-03-11 17:09 | P.PNIM_ITS ---
Assessment and Plan Assessment and Plan (1) Acute exacerbation of CHF (congestive heart failure): Qualifiers: Heart failure type: unspecified Qualified Code(s): I50.9 - Heart failure, unspecified Code(s): I50.9 - Heart failure, unspecified Status: Acute Assessment and Plan: Patient presents with SOB and most likely related to acute CHF. Consider other components such as COPD, tobacco abuse, ROSA MARIA contributing to his symptoms. Patient treated with Lasix and voided 1200 mL while still in the ER. BNP 4710 Chest x-ray shows unilateral right lung pulmonary edema and large cardiac silhouette. Echo showing EF 35%, reduced RV systolic fxn, all chambers are enlarged, mild MR, mild-mod TR with mild pulm HTN. Jardiance resumed. Entresto and Spironolactone added. Holding beta-carlie since patient is positive for cocaine. Fluid status -4.2L. Weight better. Monitor renal function, urine output daily weights. CHF teaching. Cardiology consult. Obtain old records from [place] (2) Elevated troponin: Code(s): R79.89 - Other specified abnormal findings of blood chemistry Status: Acute Assessment and Plan: Troponin peaked at 0.089. EKG showing sinus tachycardia, occasional PVCs, LAD, LAE, LAFB and borderline ST-T wave changes lateral and high lateral leads but not change from prior EKG on 02/28. Probably related to stress response from CHF exacerbation and cocaine. Echo as above. Most likely will need ischemic evaluation at some point given his multiple risk factors. (3) Hypomagnesemia: Code(s): E83.42 - Hypomagnesemia Status: Acute Assessment and Plan: Magnesium 1.2. Potassium 3.9. Magnesium and potassium were replaced. Follow (4) Diabetes: Code(s): E11.9 - Type 2 diabetes mellitus without complications Status: Chronic Assessment and Plan: Glucose was 541 on admission. Related to noncompliance with his insulin regimen. Hemoglobin A1c was 11.8% on 03/01/2025. The patient's blood glucose was reviewed on 03/11 Glucose remains poorly controlled. Continue AccuCheks covering with sliding scale. Hypoglycemia protocol available as needed. Lantus and mealtime NovoLog advanced. Diabetic diet (5) Alcohol abuse: Code(s): F10.10 - Alcohol abuse, uncomplicated Status: Chronic Assessment and Plan: Patient at risk for alcohol withdrawal. CIWA protocol started. Thiamine and folate started. Ativan and Librium available as needed for evidence of alcohol withdrawal. CIWA score 0-2 mostly. Follow He was educated about the benefits of abstaining from alcohol use. (6) Cocaine use: Code(s): F14.90 - Cocaine use, unspecified, uncomplicated Status: Acute Assessment and Plan: Patient admits to using cocaine. He denies history of IV drug use. He refuses HIV and hepatitis testing at this time. No history of HIV or hepatitis he is aware of. He was educated about the benefits of abstaining from drug use. (7) HTN (hypertension): Qualifiers: Hypertension type: primary hypertension Qualified Code(s): I10 - Essential (primary) hypertension Code(s): I10 - Essential (primary) hypertension Status: Chronic Assessment and Plan: Patient's blood pressure was reviewed on 03/11 Blood pressure better controlled. Will continue to monitor (8) COPD (chronic obstructive pulmonary disease): Code(s): J44.9 - Chronic obstructive pulmonary disease, unspecified Status: Acute Assessment and Plan: Patient had some faint wheezing. He may have a mild COPD exacerbation contributing to his shortness of breath. Xopenex and Atrovent nebulizers available p.r.n. for shortness of breath. (9) ROSA MARIA (obstructive sleep apnea): Code(s): G47.33 - Obstructive sleep apnea (adult) (pediatric) Status: Acute Assessment and Plan: Patient the history of sleep apnea and is compliant with his CPAP. Continue CPAP at bedtime and with naps. (10) Atrial fibrillation: Code(s): I48.91 - Unspecified atrial fibrillation Status: Acute Assessment and Plan: Patient has a history of atrial fibrillation. No evidence of recurrence by telemetry. Holding beta-carlie at this time due to his cocaine use. Continue Eliquis Plan DVT prophylaxis - Eliquis Code status -full Subjective Date/time seen: 03/11/25 17:09 Interval history: 44yo male with CHF, COPD, HTN, DM and ROSA MARIA here for shortness of breath. Patient feels tired. He does not believe he slept much since admission. He is on Eliquis for history of AFib. No chest pain. Shortness of breath is better. Exam Narrative: AF 97.7 108/66 102 20 98% ra Gen - NARD Chest - distant clear breath sounds CV - Tachy, regular. Tele showing sinus tachycardia with occasional PVCs Abd - abdomen was soft. Obese. Nontender. Ext - trace edema. Neuro - awake, alert Psych - pressured speech. hyperactive Skin - warm and dry. small, dried eschar bilateral mojica Objective Data Vital Signs Vital Signs: Vital Signs - 24 hr 03/10/25 18:00 03/10/25 20:00 03/10/25 20:00 Temperature 97.9 F Pulse Rate 109 H 110 H 104 H Respiratory Rate 98 H Blood Pressure 129/105 H Pulse Oximetry 16 L Oxygen Delivery 03/10/25 22:00 03/10/25 23:28 03/10/25 23:45 Temperature 97.4 F L Pulse Rate 117 H 54 L Respiratory Rate 16 Blood Pressure 152/107 H Pulse Oximetry 99 Oxygen Delivery CPAP 03/11/25 00:00 03/11/25 02:00 03/11/25 02:25 Temperature Pulse Rate 119 H 117 H 117 H Respiratory Rate Blood Pressure Pulse Oximetry Oxygen Delivery 03/11/25 04:00 03/11/25 04:00 03/11/25 04:04 Temperature 98.0 F Pulse Rate 112 H 112 H 112 H Respiratory Rate 16 Blood Pressure 129/90 Pulse Oximetry 95 Oxygen Delivery 03/11/25 06:00 03/11/25 07:36 03/11/25 08:00 Temperature 98.0 F Pulse Rate 104 H 107 H 111 H Respiratory Rate 16 Blood Pressure 136/84 Pulse Oximetry 97 98 Oxygen Delivery Room Air 03/11/25 08:00 03/11/25 10:00 03/11/25 12:00 Temperature Pulse Rate 111 H 112 H Respiratory Rate Blood Pressure Pulse Oximetry Oxygen Delivery Room Air 03/11/25 12:00 03/11/25 12:00 03/11/25 14:00 Temperature 97.8 F Pulse Rate 109 H 111 H 102 H Respiratory Rate 24 H Blood Pressure 123/87 Pulse Oximetry 97 Oxygen Delivery 03/11/25 16:00 Temperature Pulse Rate Respiratory Rate Blood Pressure Pulse Oximetry Oxygen Delivery Room Air Intake/Output Intake/Output: Intake & Output 03/08/25 03/09/25 03/10/25 03/11/25 23:59 23:59 23:59 23:59 Intake Total 1080 4080 Output Total 7200 500 Balance -6120 8290 Meds/Results Medications: Active Medications Generic Name Dose Route Start Last Admin Trade Name Freq PRN Reason Stop Dose Admin Acetaminophen 650 mg 03/10/25 02:09 Acetaminophen 325 Mg Tablet PO Q4H PRN Mild Pain (1-3) or Fever Apixaban 5 mg 03/10/25 10:50 03/11/25 09:26 Apixaban 5 Mg Tablet PO 5 mg Q12HR ISAIAS Administration Aspirin 81 mg 03/10/25 10:50 03/11/25 09:26 Aspirin 81 Mg Enteric Tablet PO 81 mg DAILY ISAIAS Administration Chlordiazepoxide HCl 25 mg 03/10/25 10:50 Chlordiazepoxide (*Crx) 25 Mg Capsule PO Q6H PRN Withdrawal CIWA 8-15 Dextrose 12.5 gm 03/10/25 10:55 Dextrose 50% 25 Gm/50 Ml Syringe IV PUSH PRN PRN Hypoglycemia Protocol Empagliflozin 25 mg 03/11/25 09:00 03/11/25 09:26 Empagliflozin 25 Mg Tablet PO 25 mg DAILY ISAIAS Administration Folic Acid 1 mg 03/10/25 10:50 03/11/25 09:26 Folic Acid 1 Mg Tablet PO 1 mg DAILY ISAIAS Administration Furosemide 40 mg 03/10/25 17:00 03/11/25 16:57 Furosemide Inj 40 Mg/4 Ml Vial IV PUSH 40 mg BID ISAIAS Administration Glucagon 1 mg 03/10/25 10:55 Glucagon For Inj 1 Mg Vial IM PRN PRN Hypoglycemia Protocol Glucose 15 gm 03/10/25 10:55 Glucose Oral Gel 15 Gm Of Glucse In 37.5 Gm Tube PO PRN PRN Hypoglycemia Protocol Dextrose 1,000 mls @ 100 mls/hr 03/10/25 10:55 Dextrose 5% 1,000 Ml IVPB PRN PRN Hypoglycemia Protocol Insulin Aspart 4 - 8 units 03/10/25 12:00 03/11/25 16:48 Insulin Aspart (*Bkc) 100 Units/Ml SUB-Q Not Given TIDWM [facility] Protocol Insulin Aspart 10 units 03/11/25 12:00 03/11/25 16:57 Insulin Aspart (*Bkc) 100 Units/Ml SUB-Q 10 units TIDWM ISAIAS Administration Insulin Glargine 45 units 03/11/25 21:00 Insulin Glargine (*Bkc) 100 Units/Ml SUB-Q HS ISAIAS Ipratropium [place] 0.5 mg 03/10/25 10:50 Ipratropium Br 0.02% Inh Soln 0.5 Mg/2.5 Ml Vial INHALATION Q6HRT PRN Shortness Of Breath Levalbuterol HCl 1.25 mg 03/10/25 10:50 Levalbuterol Neb 1.25 Mg/3 Ml INHALATION Q6HRT PRN Shortness Of Breath Or Wheezing Lorazepam 2 mg 03/10/25 13:03 Lorazepam Inj (*Crx) 2 Mg/Ml Vial IV PUSH Q2H PRN For CIWA >15 Ondansetron HCl 4 mg 03/10/25 02:09 Ondansetron Inj 4 Mg/2 Ml Vial IV PUSH Q4H PRN Nausea Ondansetron HCl 4 mg 03/10/25 10:50 Ondansetron Inj 4 Mg/2 Ml Vial IV PUSH Q6H PRN Nausea And Vomiting Perflutren Lipid Microsphere 0 ml 03/10/25 02:09 Perflutren Lipid Microspheres 1.5 Ml Vial Diluted To 10 Ml Total Volume IV PUSH 03/13/25 02:10 ONCE PRN adequate visualization Protocol Perflutren Lipid Microsphere 0 ml 03/10/25 10:50 Perflutren Lipid Microspheres 1.5 Ml Vial Diluted To 10 Ml Total Volume IV PUSH 03/13/25 10:50 ONCE PRN adequate visualization Protocol Rosuvastatin Calcium 40 mg 03/11/25 09:00 03/11/25 09:26 Rosuvastatin 20 Mg Tablet PO 40 mg DAILY ISAIAS Administration Sacubitril/Valsartan 1 tab 03/11/25 09:00 03/11/25 09:35 Sacubitril/Valsartan 24-26 Mg Tablet PO 1 tab Q12HR ISAIAS Administration Spironolactone 25 mg 03/11/25 09:00 03/11/25 09:35 Spironolactone 25 Mg Tablet PO 25 mg QAM ISAIAS Administration Thiamine HCl 100 mg 03/11/25 09:00 03/11/25 09:35 Thiamine Hcl 200 Mg/2 Ml Vial IV PUSH 100 mg QAM ISAIAS Administration Radiology Results: ITS Impressions Chest X-Ray 03/10/25 06:21 IMPRESSION: 1. Unilateral right lung pulmonary edema and/or airspace disease. 2. Pericardial effusion not excluded. Labs Labs: Laboratory Results - last 24 hr 03/10/25 03/10/25 03/11/25 17:11 20:06 04:16 WBC 9.0 RBC 5.40 Hgb 14.9 Hct 46.2 MCV 85.6 MCH 27.6 MCHC 32.3 RDW 14.6 H Plt Count 347 MPV 10.8 H Immature Gran % (Auto) 0.7 H Neut % (Auto) 69.0 Lymph % (Auto) 20.8 Martin % (Auto) 6.9 Eos % (Auto) 2.2 Baso % (Auto) 0.4 Lymph # (Auto) 1.88 Martin # (Auto) 0.6 Eos # (Auto) 0.2 Baso # (Auto) 0.0 Abs Immat Gran (auto) 0.06 H Absolute Neuts (auto) 6.2 Absolute Nucleated RBC 0.000 Nucleated RBC % 0.0 Sodium 132 L Potassium 4.3 Chloride 96 L Carbon Dioxide 31 H Anion Gap 5 BUN 35 H D Creatinine 1.24 Estim Creat Clear Calc 86 Estimated GFR > 60 Glucose 509 H* POC Capillary Glucose 365 H Calcium 8.9 Phosphorus 4.0 Magnesium 1.8 Total Bilirubin 0.5 AST 24 ALT 26 Alkaline Phosphatase 125 Total Protein 7.1 Albumin 3.8 Triglycerides 262 H Cholesterol 171 LDL Cholesterol Direct 98 HDL Direct 37 TSH (Reflex) 1.860 U Random Total Protein 246 Urine Creatinine 59.9 Protein/Creat Ratio 2 4.11 H 03/11/25 03/11/25 03/11/25 05:19 07:57 11:34 WBC RBC Hgb Hct MCV MCH MCHC RDW Plt Count MPV Immature Gran % (Auto) Neut % (Auto) Lymph % (Auto) Martin % (Auto) Eos % (Auto) Baso % (Auto) Lymph # (Auto) Martin # (Auto) Eos # (Auto) Baso # (Auto) Abs Immat Gran (auto) Absolute Neuts (auto) Absolute Nucleated RBC Nucleated RBC % Sodium Potassium Chloride Carbon Dioxide Anion Gap BUN Creatinine Estim Creat Clear Calc Estimated GFR Glucose POC Capillary Glucose 431 H 305 H 248 H Calcium Phosphorus Magnesium Total Bilirubin AST ALT Alkaline Phosphatase Total Protein Albumin Triglycerides Cholesterol LDL Cholesterol Direct HDL Direct TSH (Reflex) U Random Total Protein Urine Creatinine Protein/Creat Ratio 2 03/11/25 16:13 WBC RBC Hgb Hct MCV MCH MCHC RDW Plt Count MPV Immature Gran % (Auto) Neut % (Auto) Lymph % (Auto) Martin % (Auto) Eos % (Auto) Baso % (Auto) Lymph # (Auto) Martin # (Auto) Eos # (Auto) Baso # (Auto) Abs Immat Gran (auto) Absolute Neuts (auto) Absolute Nucleated RBC Nucleated RBC % Sodium Potassium Chloride Carbon Dioxide Anion Gap BUN Creatinine Estim Creat Clear Calc Estimated GFR Glucose POC Capillary Glucose 181 H Calcium Phosphorus Magnesium Total Bilirubin AST ALT Alkaline Phosphatase Total Protein Albumin Triglycerides Cholesterol LDL Cholesterol Direct HDL Direct TSH (Reflex) U Random Total Protein Urine Creatinine Protein/Creat Ratio 2
[2025-03-11] MEDS: MELATONIN 5 MG TABLET PO (21:45)
[2025-03-11] MEDS: INSULIN GLARGINE (*BKC) 100 UNITS/ML 45 UNITS SUB-Q (22:05)
[2025-03-12] VITALS (17 sets, daily range): BP systolic 100–138; BP diastolic 72–100; PULSE 90–110; RESP 20–28; TEMP 36.4–36.8; O2SAT 96–100
[2025-03-12 04:50] LABS: Albumin Level 3.5 g/dL (3.5-5.1); Anion Gap 7 mmol/L (4-12); Blood Urea Nitrogen 30 mg/dL (9-20); Calcium 9.0 mg/dL (8.4-10.2); Carbon Dioxide 30 mmol/L (22-30); Chloride 101 mmol/L (98-107); Estimated CRCL calculation 99 ml/min; Estimated Glomerular Filt Rate > 60; Glucose 276 mg/dL (65-110); Magnesium 2.0 mg/dL (1.6-2.3); Potassium 4.0 mmol/L (3.4-5.0); Sodium 138 mmol/L (137-145)
[2025-03-12] MEDS: INSULIN ASPART (*BKC) 100 UNITS/ML SUB-Q ×2 (08:07→16:54)
[2025-03-12] MEDS: APIXABAN 5 MG TABLET PO ×2 (08:08→20:49)
[2025-03-12] MEDS: FOLIC ACID 1 MG TABLET PO (08:08)
[2025-03-12] MEDS: SACUBITRIL/VALSARTAN 24-26 MG TABLET 1 TAB PO ×2 (08:08→20:49)
[2025-03-12] MEDS: EMPAGLIFLOZIN 25 MG TABLET PO (08:08)
[2025-03-12] MEDS: ROSUVASTATIN 20 MG TABLET 40 MG PO (08:08)
[2025-03-12] MEDS: INSULIN ASPART (*BKC) 100 UNITS/ML 10 UNITS SUB-Q (08:08)
[2025-03-12] MEDS: ASPIRIN 81 MG ENTERIC TABLET PO (08:09)
[2025-03-12] MEDS: THIAMINE HCL 200 MG/2 ML VIAL 100 MG IV PUSH (08:09)
[2025-03-12] MEDS: SPIRONOLACTONE 25 MG TABLET PO (08:09)
[2025-03-12] MEDS: FUROSEMIDE INJ 40 MG/4 ML VIAL IV PUSH ×2 (08:09→16:53)
--- NOTE | 2025-03-12 09:20 | PC.NURSE ---
Patient is in the shower at this time. Patient educated that he is not able to shower without staff being aware. Patient stated he will finish his shower and then be out. Patient is also non compliant with the 1500 ml fluid restriction diet. Patient educated on the risks of fluid overload. Patient continues to yell and ask all staff members for fluids.
--- NOTE | 2025-03-12 09:59 | PM.PNCARD ---
Progress Note: A&P Assessment and Plan (1) Acute systolic heart failure: Code(s): I50.21 - Acute systolic (congestive) heart failure Status: Acute (2) HTN (hypertension): Qualifiers: Hypertension type: primary hypertension Qualified Code(s): I10 - Essential (primary) hypertension Code(s): I10 - Essential (primary) hypertension Status: Chronic (3) Hyperlipidemia: Qualifiers: Hyperlipidemia type: unspecified Qualified Code(s): E78.5 - Hyperlipidemia, unspecified Code(s): E78.5 - Hyperlipidemia, unspecified Status: Chronic (4) Alcohol abuse: Code(s): F10.10 - Alcohol abuse, uncomplicated Status: Chronic (5) Cocaine use: Code(s): F14.90 - Cocaine use, unspecified, uncomplicated Status: Acute (6) CAD (coronary artery disease): Code(s): I25.10 - Atherosclerotic heart disease of [place] coronary artery without angina pectoris Status: Acute Plan 44-year-old male with history of congestive heart failure, HFrEF (LVEF 35%), CAD (per patient- [place] 9 years ago s/p 2 stents, PCI 1 year ago with 1 stent and 1 stent to restenosis- all at [facility]), hyperlipidemia, hypertension, diabetes mellitus, alcohol abuse, obstructive sleep apnea, cocaine use, COPD with Acute on chronic systolic and diastolic heart failure- LVEF 35% by TTE 02/28/2025, not sure if this is new or if pt had low EF when he lived in [place] CAD s/p 3 stents in the past Elevated troponin (0.081, 0.089, 0.075) without chest pain - most likely secondary to acute heart failure Cocaine and alcohol abuse; UDS positive for cocaine Plan: Diurese with IV lasix 40 mg BID Check daily weight, ins and outs, and renal function Check and replace electrolytes to keep K>4 and Mg>2 GDMT- continue lisinopril, empagliflozin Hold metoprolol given cocaine positive He is on Eliquis for atrial fibrillation history. Troponin elevated but mostly flat and without chest pain. Down trending now Continue asa, statin for CAD Obtain records of prior echo and cath from [facility] Will need stress test vs cath to evaluate ischemia as cause of depressed LVEF if this is new, particularly given his history of prior PCI Counseled about stopping alcohol and cocaine use Cardiology will continue to follow Subjective Date/time seen: 03/12/25 09:59 Interval history: 44yo male with CHF, COPD, HTN, DM and ROSA MARIA here for shortness of breath. Patient feels tired. He does not believe he slept much since admission. He is on Eliquis for history of AFib. No chest pain. Shortness of breath is better. Date of service 03/12/2025: Feeling better. He denies shortness of breath, orthopnea. He still has some swelling but it has significantly improved. No chest pain, palpitations Review of Systems Review of Systems: A complete review of systems was performed and pertinent positives are reported in the HPI. Exam Narrative: General: Alert oriented x3, no acute distress Neck: Supple, JVD + Chest: Right mid to basal lung crackles present, no rhonchi Cardiac: S1, S2 +, regular rate, regular rhythm, no murmurs or rubs Extremities: Bilateral lower extremity edema mild, nonpitting, no skin rash Neurologic: Alert and oriented x3, no focal neurological deficits Objective Data Vital Signs Vital Signs: Vital Signs - 24 hr 03/11/25 10:00 03/11/25 12:00 03/11/25 12:00 Temperature Pulse Rate 112 H 109 H Respiratory Rate Blood Pressure Pulse Oximetry Oxygen Delivery Room Air Fraction of Inspired Oxygen 03/11/25 12:00 03/11/25 14:00 03/11/25 16:00 Temperature 36.6 C Pulse Rate 111 H 102 H Respiratory Rate 24 H Blood Pressure 123/87 Pulse Oximetry 97 Oxygen Delivery Room Air Fraction of Inspired Oxygen 03/11/25 16:00 03/11/25 16:00 03/11/25 18:00 Temperature 36.5 C Pulse Rate 104 H 102 H 113 H Respiratory Rate 20 Blood Pressure 108/66 Pulse Oximetry 98 Oxygen Delivery Fraction of Inspired Oxygen 03/11/25 19:42 03/11/25 20:00 03/11/25 20:00 Temperature 36.8 C Pulse Rate 104 H 80 108 H Respiratory Rate 20 20 Blood Pressure 110/86 Pulse Oximetry 99 95 Oxygen Delivery CPAP Fraction of Inspired Oxygen 40 03/11/25 21:56 03/11/25 22:00 03/12/25 00:00 Temperature Pulse Rate 80 105 H 102 H Respiratory Rate 22 H Blood Pressure Pulse Oximetry 95 100 Oxygen Delivery CPAP CPAP Fraction of Inspired Oxygen 40 03/12/25 00:08 03/12/25 03:11 03/12/25 04:00 Temperature 36.8 C Pulse Rate 102 H 94 Respiratory Rate 22 H Blood Pressure 104/72 Pulse Oximetry 100 Oxygen Delivery CPAP Fraction of Inspired Oxygen 03/12/25 04:00 03/12/25 04:48 03/12/25 06:00 Temperature 36.7 C Pulse Rate 92 92 90 Respiratory Rate 20 20 Blood Pressure 120/78 Pulse Oximetry 99 99 Oxygen Delivery CPAP Fraction of Inspired Oxygen 40 03/12/25 07:32 Temperature 36.6 C Pulse Rate 107 H Respiratory Rate 28 H Blood Pressure 138/100 H Pulse Oximetry 96 Oxygen Delivery Fraction of Inspired Oxygen Intake/Output Intake/Output: Intake & Output 03/09/25 03/10/25 03/11/25 03/12/25 23:59 23:59 23:59 23:59 Intake Total 1080 4920 660 Output Total 7200 3000 2600 Balance -6120 1920 -1940 Meds/Results Medications: Active Medications Generic Name Dose Route Start Last Admin Trade Name Freq PRN Reason Stop Dose Admin Acetaminophen 650 mg 03/10/25 02:09 Acetaminophen 325 Mg Tablet PO Q4H PRN Mild Pain (1-3) or Fever Apixaban 5 mg 03/10/25 10:50 03/12/25 08:08 Apixaban 5 Mg Tablet PO 5 mg Q12HR ISAIAS Administration Aspirin 81 mg 03/10/25 10:50 03/12/25 08:09 Aspirin 81 Mg Enteric Tablet PO 81 mg DAILY ISAIAS Administration Chlordiazepoxide HCl 25 mg 03/10/25 10:50 Chlordiazepoxide (*Crx) 25 Mg Capsule PO Q6H PRN Withdrawal CIWA 8-15 Dextrose 12.5 gm 03/10/25 10:55 Dextrose 50% 25 Gm/50 Ml Syringe IV PUSH PRN PRN Hypoglycemia Protocol Empagliflozin 25 mg 03/11/25 09:00 03/12/25 08:08 Empagliflozin 25 Mg Tablet PO 25 mg DAILY ISAIAS Administration Folic Acid 1 mg 03/10/25 10:50 03/12/25 08:08 Folic Acid 1 Mg Tablet PO 1 mg DAILY ISAIAS Administration Furosemide 40 mg 03/10/25 17:00 03/12/25 08:09 Furosemide Inj 40 Mg/4 Ml Vial IV PUSH 40 mg BID ISAIAS Administration Glucagon 1 mg 03/10/25 10:55 Glucagon For Inj 1 Mg Vial IM PRN PRN Hypoglycemia Protocol Glucose 15 gm 03/10/25 10:55 Glucose Oral Gel 15 Gm Of Glucse In 37.5 Gm Tube PO PRN PRN Hypoglycemia Protocol Dextrose 1,000 mls @ 100 mls/hr 03/10/25 10:55 Dextrose 5% 1,000 Ml IVPB PRN PRN Hypoglycemia Protocol Insulin Aspart 4 - 8 units 03/10/25 12:00 03/12/25 08:07 Insulin Aspart (*Bkc) 100 Units/Ml SUB-Q 5 units TIDWM ISAIAS Administration Protocol Insulin Aspart 12 units 03/12/25 12:00 Insulin Aspart (*Bkc) 100 Units/Ml SUB-Q TIDWM ISAIAS Insulin Glargine 50 units 03/12/25 21:00 Insulin Glargine (*Bkc) 100 Units/Ml SUB-Q HS ISAIAS Ipratropium [place] 0.5 mg 03/10/25 10:50 Ipratropium Br 0.02% Inh Soln 0.5 Mg/2.5 Ml Vial INHALATION Q6HRT PRN Shortness Of Breath Levalbuterol HCl 1.25 mg 03/10/25 10:50 Levalbuterol Neb 1.25 Mg/3 Ml INHALATION Q6HRT PRN Shortness Of Breath Or Wheezing Lorazepam 2 mg 03/10/25 13:03 Lorazepam Inj (*Crx) 2 Mg/Ml Vial IV PUSH Q2H PRN For CIWA >15 Melatonin 5 mg 03/11/25 17:49 03/11/25 21:45 Melatonin 5 Mg Tablet PO 5 mg HS PRN Administration Sleep Ondansetron HCl 4 mg 03/10/25 02:09 Ondansetron Inj 4 Mg/2 Ml Vial IV PUSH Q4H PRN Nausea Ondansetron HCl 4 mg 03/10/25 10:50 Ondansetron Inj 4 Mg/2 Ml Vial IV PUSH Q6H PRN Nausea And Vomiting Perflutren Lipid Microsphere 0 ml 03/10/25 02:09 Perflutren Lipid Microspheres 1.5 Ml Vial Diluted To 10 Ml Total Volume IV PUSH 03/13/25 02:10 ONCE PRN adequate visualization Protocol Perflutren Lipid Microsphere 0 ml 03/10/25 10:50 Perflutren Lipid Microspheres 1.5 Ml Vial Diluted To 10 Ml Total Volume IV PUSH 03/13/25 10:50 ONCE PRN adequate visualization Protocol Rosuvastatin Calcium 40 mg 03/11/25 09:00 03/12/25 08:08 Rosuvastatin 20 Mg Tablet PO 40 mg DAILY ISAIAS Administration Sacubitril/Valsartan 1 tab 03/11/25 09:00 03/12/25 08:08 Sacubitril/Valsartan 24-26 Mg Tablet PO 1 tab Q12HR ISAIAS Administration Spironolactone 25 mg 03/11/25 09:00 03/12/25 08:09 Spironolactone 25 Mg Tablet PO 25 mg QAM ISAIAS Administration Thiamine HCl 100 mg 03/12/25 09:00 Thiamine Hcl 100 Mg Tablet PO QAM [facility] Radiology Results: ITS Impressions Chest X-Ray 03/10/25 06:21 IMPRESSION: 1. Unilateral right lung pulmonary edema and/or airspace disease. 2. Pericardial effusion not excluded. Labs Labs: Laboratory Results - last 24 hr 03/11/25 03/11/25 03/11/25 11:34 16:13 20:25 Sodium Potassium Chloride Carbon Dioxide Anion Gap BUN Creatinine Estim Creat Clear Calc Estimated GFR Glucose POC Capillary Glucose 248 H 181 H 287 H Calcium Phosphorus Magnesium Albumin 03/12/25 03/12/25 04:07 07:36 Sodium 138 Potassium 4.0 Chloride 101 Carbon Dioxide 30 Anion Gap 7 BUN 30 H Creatinine 1.07 Estim Creat Clear Calc 99 Estimated GFR > 60 Glucose 276 H POC Capillary Glucose 294 H Calcium 9.0 Phosphorus 4.5 Magnesium 2.0 Albumin 3.5
[2025-03-12] MEDS: INSULIN ASPART (*BKC) 100 UNITS/ML 6 UNITS SUB-Q (13:09)
[2025-03-12] MEDS: INSULIN ASPART (*BKC) 100 UNITS/ML 12 UNITS SUB-Q (17:01)
--- NOTE | 2025-03-12 17:23 | PM.IMPN2 ---
Assessment and Plan Assessment and Plan (1) Acute exacerbation of CHF (congestive heart failure): Qualifiers: Heart failure type: unspecified Qualified Code(s): I50.9 - Heart failure, unspecified Code(s): I50.9 - Heart failure, unspecified Status: Acute Assessment and Plan: Patient presents with SOB and most likely related to acute CHF. Consider other components such as COPD, tobacco abuse, ROSA MARIA contributing to his symptoms. Patient treated with Lasix and voided 1200 mL while still in the ER. BNP 4710 Chest x-ray shows unilateral right lung pulmonary edema and large cardiac silhouette. Echo showing EF 35%, reduced RV systolic fxn, all chambers are enlarged, mild MR, mild-mod TR with mild pulm HTN. Jardiance resumed. Entresto and Spironolactone added. Holding beta-carlie since patient is positive for cocaine. Fluid status -8.5L. Weight better. Monitor renal function, urine output daily weights. Old records requested. CHF teaching. Cardiology consulted. Change to oral Lasix tomorrow. (2) Elevated troponin: Code(s): R79.89 - Other specified abnormal findings of blood chemistry Status: Acute Assessment and Plan: Troponin peaked at 0.089. EKG showing sinus tachycardia, occasional PVCs, LAD, LAE, LAFB and borderline ST-T wave changes lateral and high lateral leads but not change from prior EKG on 02/28. Probably related to stress response from CHF exacerbation and cocaine. Echo as above. Most likely will need ischemic evaluation at some point given his multiple risk factors. (3) Hypomagnesemia: Code(s): E83.42 - Hypomagnesemia Status: Acute Assessment and Plan: Magnesium 2. Potassium 4. Follow (4) Diabetes: Code(s): E11.9 - Type 2 diabetes mellitus without complications Status: Chronic Assessment and Plan: Glucose was 541 on admission. Related to noncompliance with his insulin regimen. Hemoglobin A1c was 11.8% on 03/01/2025. The patient's blood glucose was reviewed on 03/12 Glucose remains poorly controlled except dropped to 92 before lunch. Continue AccuCheks covering with sliding scale. Hypoglycemia protocol available as needed. Contnue to adjust Lantus and mealtime NovoLog Diabetic diet (5) Alcohol abuse: Code(s): F10.10 - Alcohol abuse, uncomplicated Status: Chronic Assessment and Plan: Patient at risk for alcohol withdrawal. CIWA protocol started. Thiamine and folate started. Ativan and Librium available as needed for evidence of alcohol withdrawal but not needed so far. CIWA score 0-2 mostly. Follow He was educated about the benefits of abstaining from alcohol use. (6) Cocaine use: Code(s): F14.90 - Cocaine use, unspecified, uncomplicated Status: Acute Assessment and Plan: Patient admits to using cocaine. He denies history of IV drug use. He refuses HIV and hepatitis testing at this time. No history of HIV or hepatitis he is aware of. He was educated about the benefits of abstaining from drug use. (7) HTN (hypertension): Qualifiers: Hypertension type: primary hypertension Qualified Code(s): I10 - Essential (primary) hypertension Code(s): I10 - Essential (primary) hypertension Status: Chronic Assessment and Plan: Patient's blood pressure was reviewed on 03/12 Blood pressure better controlled. Will continue to monitor (8) COPD (chronic obstructive pulmonary disease): Code(s): J44.9 - Chronic obstructive pulmonary disease, unspecified Status: Acute Assessment and Plan: Patient had some faint wheezing. He may have a mild COPD exacerbation contributing to his shortness of breath. Xopenex and Atrovent nebulizers available p.r.n. for shortness of breath. (9) ROSA MARIA (obstructive sleep apnea): Code(s): G47.33 - Obstructive sleep apnea (adult) (pediatric) Status: Acute Assessment and Plan: Patient the history of sleep apnea and is compliant with his CPAP. Continue CPAP at bedtime and with naps. (10) Atrial fibrillation: Code(s): I48.91 - Unspecified atrial fibrillation Status: Acute Assessment and Plan: Patient has a history of atrial fibrillation. No evidence of recurrence by telemetry. Holding beta-carlie at this time due to his cocaine use. Continue Eliquis Plan DVT prophylaxis - Eliquis Code status -full Subjective Date/time seen: 03/12/25 17:23 Interval history: 44yo male with CHF, COPD, HTN, DM and ROSA MARIA here for shortness of breath. Patient slept well last night. He feels well today. No shortness of breath. He is able to lay flat in bed. Exam Narrative: AF 97.6 118/90 100 22 99% ra Gen - NARD Chest -clear to auscultation bilaterally. CV - RRR. Tele showing sinus tachycardia with occasional PVCs Abd - abdomen was soft. Obese. Nontender. Ext - trace edema. Neuro - awake, alert Psych - calm Skin - warm and dry Objective Data Vital Signs Vital Signs: Vital Signs - 24 hr 03/11/25 18:00 03/11/25 19:42 03/11/25 20:00 Temperature 98.2 F Pulse Rate 113 H 104 H 80 Respiratory Rate 20 20 Blood Pressure 110/86 Pulse Oximetry 99 95 Oxygen Delivery CPAP Fraction of Inspired Oxygen 40 03/11/25 20:00 03/11/25 21:56 03/11/25 22:00 Temperature Pulse Rate 108 H 80 105 H Respiratory Rate Blood Pressure Pulse Oximetry 95 Oxygen Delivery CPAP Fraction of Inspired Oxygen 03/12/25 00:00 03/12/25 00:08 03/12/25 03:11 Temperature 98.2 F Pulse Rate 102 H 102 H Respiratory Rate 22 H 22 H Blood Pressure 104/72 Pulse Oximetry 100 100 Oxygen Delivery CPAP CPAP Fraction of Inspired Oxygen 40 03/12/25 04:00 03/12/25 04:00 03/12/25 04:48 Temperature 98.1 F Pulse Rate 94 92 92 Respiratory Rate 20 20 Blood Pressure 120/78 Pulse Oximetry 99 99 Oxygen Delivery CPAP Fraction of Inspired Oxygen 40 03/12/25 06:00 03/12/25 07:32 03/12/25 08:00 Temperature 97.8 F Pulse Rate 90 107 H Respiratory Rate 28 H Blood Pressure 138/100 H Pulse Oximetry 96 Oxygen Delivery Room Air Fraction of Inspired Oxygen 03/12/25 08:00 03/12/25 10:00 03/12/25 11:05 Temperature 97.8 F Pulse Rate 100 100 98 Respiratory Rate 24 H Blood Pressure 100/84 Pulse Oximetry 99 Oxygen Delivery Fraction of Inspired Oxygen 03/12/25 12:00 03/12/25 12:00 03/12/25 14:00 Temperature Pulse Rate 91 92 Respiratory Rate Blood Pressure Pulse Oximetry Oxygen Delivery Room Air Fraction of Inspired Oxygen 03/12/25 15:24 03/12/25 16:00 Temperature 97.6 F Pulse Rate 100 Respiratory Rate 22 H Blood Pressure 118/90 Pulse Oximetry 99 Oxygen Delivery Room Air Fraction of Inspired Oxygen Intake/Output Intake/Output: Intake & Output 03/09/25 03/10/25 03/11/25 03/12/25 23:59 23:59 23:59 23:59 Intake Total 1080 4920 1540 Output Total 7200 3036 3496 Balance -6162 0359 -9559 Meds/Results Medications: Active Medications Generic Name Dose Route Start Last Admin Trade Name Freq PRN Reason Stop Dose Admin Acetaminophen 650 mg 03/10/25 02:09 Acetaminophen 325 Mg Tablet PO Q4H PRN Mild Pain (1-3) or Fever Apixaban 5 mg 03/10/25 10:50 03/12/25 08:08 Apixaban 5 Mg Tablet PO 5 mg Q12HR ISAIAS Administration Aspirin 81 mg 03/10/25 10:50 03/12/25 08:09 Aspirin 81 Mg Enteric Tablet PO 81 mg DAILY ISAIAS Administration Chlordiazepoxide HCl 25 mg 03/10/25 10:50 Chlordiazepoxide (*Crx) 25 Mg Capsule PO Q6H PRN Withdrawal CIWA 8-15 Dextrose 12.5 gm 03/10/25 10:55 Dextrose 50% 25 Gm/50 Ml Syringe IV PUSH PRN PRN Hypoglycemia Protocol Empagliflozin 25 mg 03/11/25 09:00 03/12/25 08:08 Empagliflozin 25 Mg Tablet PO 25 mg DAILY ISAIAS Administration Folic Acid 1 mg 03/10/25 10:50 03/12/25 08:08 Folic Acid 1 Mg Tablet PO 1 mg DAILY ISAIAS Administration Furosemide 40 mg 03/10/25 17:00 03/12/25 16:53 Furosemide Inj 40 Mg/4 Ml Vial IV PUSH 40 mg BID ISAIAS Administration Glucagon 1 mg 03/10/25 10:55 Glucagon For Inj 1 Mg Vial IM PRN PRN Hypoglycemia Protocol Glucose 15 gm 03/10/25 10:55 Glucose Oral Gel 15 Gm Of Glucse In 37.5 Gm Tube PO PRN PRN Hypoglycemia Protocol Dextrose 1,000 mls @ 100 mls/hr 03/10/25 10:55 Dextrose 5% 1,000 Ml IVPB PRN PRN Hypoglycemia Protocol Insulin Aspart 4 - 8 units 03/10/25 12:00 03/12/25 16:54 Insulin Aspart (*Bkc) 100 Units/Ml SUB-Q 4 units TIDWM ISAIAS Administration Protocol Insulin Aspart 12 units 03/12/25 12:00 03/12/25 17:01 Insulin Aspart (*Bkc) 100 Units/Ml SUB-Q 12 units TIDWM ISAIAS Administration Insulin Glargine 50 units 03/12/25 21:00 Insulin Glargine (*Bkc) 100 Units/Ml SUB-Q HS ISAIAS Ipratropium [place] 0.5 mg 03/10/25 10:50 Ipratropium Br 0.02% Inh Soln 0.5 Mg/2.5 Ml Vial INHALATION Q6HRT PRN Shortness Of Breath Levalbuterol HCl 1.25 mg 03/10/25 10:50 Levalbuterol Neb 1.25 Mg/3 Ml INHALATION Q6HRT PRN Shortness Of Breath Or Wheezing Lorazepam 2 mg 03/10/25 13:03 Lorazepam Inj (*Crx) 2 Mg/Ml Vial IV PUSH Q2H PRN For CIWA >15 Melatonin 5 mg 03/11/25 17:49 03/11/25 21:45 Melatonin 5 Mg Tablet PO 5 mg HS PRN Administration Sleep Ondansetron HCl 4 mg 03/10/25 02:09 Ondansetron Inj 4 Mg/2 Ml Vial IV PUSH Q4H PRN Nausea Ondansetron HCl 4 mg 03/10/25 10:50 Ondansetron Inj 4 Mg/2 Ml Vial IV PUSH Q6H PRN Nausea And Vomiting Perflutren Lipid Microsphere 0 ml 03/10/25 02:09 Perflutren Lipid Microspheres 1.5 Ml Vial Diluted To 10 Ml Total Volume IV PUSH 03/13/25 02:10 ONCE PRN adequate visualization Protocol Perflutren Lipid Microsphere 0 ml 03/10/25 10:50 Perflutren Lipid Microspheres 1.5 Ml Vial Diluted To 10 Ml Total Volume IV PUSH 03/13/25 10:50 ONCE PRN adequate visualization Protocol Rosuvastatin Calcium 40 mg 03/11/25 09:00 03/12/25 08:08 Rosuvastatin 20 Mg Tablet PO 40 mg DAILY ISAIAS Administration Sacubitril/Valsartan 1 tab 03/11/25 09:00 03/12/25 08:08 Sacubitril/Valsartan 24-26 Mg Tablet PO 1 tab Q12HR ISAIAS Administration Spironolactone 25 mg 03/11/25 09:00 03/12/25 08:09 Spironolactone 25 Mg Tablet PO 25 mg QAM ISAIAS Administration Thiamine HCl 100 mg 03/12/25 09:00 03/12/25 12:20 Thiamine Hcl 100 Mg Tablet PO Not Given QAM [facility] Radiology Results: ITS Impressions Chest X-Ray 03/10/25 06:21 IMPRESSION: 1. Unilateral right lung pulmonary edema and/or airspace disease. 2. Pericardial effusion not excluded. Labs Labs: Laboratory Results - last 24 hr 03/11/25 03/12/25 03/12/25 20:25 04:07 07:36 Sodium 138 Potassium 4.0 Chloride 101 Carbon Dioxide 30 Anion Gap 7 BUN 30 H Creatinine 1.07 Estim Creat Clear Calc 99 Estimated GFR > 60 Glucose 276 H POC Capillary Glucose 287 H 294 H Calcium 9.0 Phosphorus 4.5 Magnesium 2.0 Albumin 3.5 03/12/25 03/12/25 11:07 16:11 Sodium Potassium Chloride Carbon Dioxide Anion Gap BUN Creatinine Estim Creat Clear Calc Estimated GFR Glucose POC Capillary Glucose 92 208 H Calcium Phosphorus Magnesium Albumin
[2025-03-12] MEDS: MELATONIN 5 MG TABLET PO (20:49)
[2025-03-12] MEDS: INSULIN GLARGINE (*BKC) 100 UNITS/ML 50 UNITS SUB-Q (20:54)
[2025-03-13] VITALS (10 sets, daily range): BP systolic 112–142; BP diastolic 71–91; PULSE 83–996; RESP 18–22; TEMP 36.6–36.7; O2SAT 98–100
[2025-03-13] MEDS: ACETAMINOPHEN 325 MG TABLET 650 MG PO (03:46)
[2025-03-13 04:29] LABS: Hematocrit 47.0 % (42.0-52.0); Hemoglobin 14.8 g/dL (14.0-18.0); Immature Granulocyte Percent A 0.4 % (0-0.5); Lymphocytes Absolute Auto 2.04 K/mm3 (0.9-3.2); Mean Corpuscular HGB Conc 31.5 g/dl (32-36); Mean Corpuscular Hemoglobin 27.2 pg (26-34); Mean Corpuscular Volume 86.4 fl (80-100); Nucleated Red Blood Cells Absolute Auto 0.000 K/mm3 (0.0-0.012); Nucleated Red Blood Cells Perc 0.0 % (0.0-0.2); Platelet Count Result 355 k/mm3 (150-375); Red Blood Count 5.44 M/mm3 (4.6-6.20); White Blood Count 7.7 K/mm3 (4.5-10.0)
[2025-03-13 04:48] LABS: Anion Gap 9 mmol/L (4-12); Blood Urea Nitrogen 31 mg/dL (9-20); Calcium 8.7 mg/dL (8.4-10.2); Carbon Dioxide 28 mmol/L (22-30); Chloride 101 mmol/L (98-107); Estimated CRCL calculation 96 ml/min; Estimated Glomerular Filt Rate > 60; Glucose 356 mg/dL (65-110); Magnesium 2.1 mg/dL (1.6-2.3); Potassium 4.2 mmol/L (3.4-5.0); Sodium 138 mmol/L (137-145)
[2025-03-13] MEDS: INSULIN ASPART (*BKC) 100 UNITS/ML SUB-Q (07:29)
[2025-03-13] MEDS: INSULIN ASPART (*BKC) 100 UNITS/ML 10 UNITS SUB-Q ×2 (07:30→12:02)
--- NOTE | 2025-03-13 07:48 | PC.NURSE ---
This RN went to the patients room to give medications as ordered. Patient is noted to be talking to himself stating Parag Rainey. No one ever listens to leonard Rainey. Upon entry to the room the patient states that Are they still giving me lasix in my IV? This RN states yes. The patient states Man, I just want to get out of here. He further explained how he had recently been in the hospital and left AMA and that he spent most of the month of November in the hospital. This RN states Well, you have to be willing to take medical advice to stay out of the hospital. The patient then states that I am sick of being told what to do, I am paying you people and I might make some changes but I am not going to change my life. This starts to talk to educate and the patient interrupts me, with a loud voice How did this turn this way. This RN told him to lower his voice. The patient states How did this get heated. This RN states I am not heated I am just trying to explain to you that if you don't take medical advice you will find yourself in and out of the hospital more often. The patient states You have an attitude. This RN states What would you like to be called Brenden or Redd? The patient states I don't care. This RN states, Brenden it is then, thats my brothers name. I am just trying to explain to you that...The patient interrupts again and tells me to Leave my room, Please leave my room. This RN left the room and the patient states She is going to be a handful. The patient certified social workers in health care Vera was in the room during the conversation. This RN left the room and stated I would be back with his morning medications.
[2025-03-13] MEDS: EMPAGLIFLOZIN 25 MG TABLET PO (09:09)
[2025-03-13] MEDS: THIAMINE HCL 100 MG TABLET PO (09:09)
[2025-03-13] MEDS: ASPIRIN 81 MG ENTERIC TABLET PO (09:09)
[2025-03-13] MEDS: ROSUVASTATIN 20 MG TABLET 40 MG PO (09:09)
[2025-03-13] MEDS: APIXABAN 5 MG TABLET PO (09:09)
[2025-03-13] MEDS: SPIRONOLACTONE 25 MG TABLET PO (09:10)
[2025-03-13] MEDS: SACUBITRIL/VALSARTAN 24-26 MG TABLET 1 TAB PO (09:10)
[2025-03-13] MEDS: FOLIC ACID 1 MG TABLET PO (09:10)
[2025-03-13] MEDS: FUROSEMIDE INJ 40 MG/4 ML VIAL IV PUSH (09:10)
--- NOTE | 2025-03-13 14:14 | PM.DS ---
DS: Admitting Diagnosis Discharge Date 03/13/25 Admitting Diagnosis Shortness of breath DS: Discharge Diagnosis Discharge Diagnosis (1) Acute exacerbation of CHF (congestive heart failure): Qualifiers: Heart failure type: unspecified Qualified Code(s): I50.9 - Heart failure, unspecified Code(s): I50.9 - Heart failure, unspecified Status: Acute (2) Elevated troponin: Code(s): R79.89 - Other specified abnormal findings of blood chemistry Status: Acute (3) Hypomagnesemia: Code(s): E83.42 - Hypomagnesemia Status: Acute (4) Diabetes: Code(s): E11.9 - Type 2 diabetes mellitus without complications Status: Chronic (5) Alcohol abuse: Code(s): F10.10 - Alcohol abuse, uncomplicated Status: Chronic (6) Cocaine use: Code(s): F14.90 - Cocaine use, unspecified, uncomplicated Status: Acute (7) HTN (hypertension): Qualifiers: Hypertension type: primary hypertension Qualified Code(s): I10 - Essential (primary) hypertension Code(s): I10 - Essential (primary) hypertension Status: Chronic (8) COPD (chronic obstructive pulmonary disease): Code(s): J44.9 - Chronic obstructive pulmonary disease, unspecified Status: Acute (9) ROSA MARIA (obstructive sleep apnea): Code(s): G47.33 - Obstructive sleep apnea (adult) (pediatric) Status: Acute (10) Atrial fibrillation: Code(s): I48.91 - Unspecified atrial fibrillation Status: Acute DS: Summary Hospital Course Reason for hospitalization: 44yo male with CHF, COPD, HTN, DM and ROSA MARIA here for shortness of breath. Please see H&P for details. Hospital Course: The following medical conditions were addressed during his hospital course: (1) Acute exacerbation of CHF (congestive heart failure): Patient presents with SOB and most likely related to acute CHF. Consider other components such as COPD, tobacco abuse, ROSA MARIA contributing to his symptoms. Patient treated with Lasix IV and voided 1200 mL while still in the ER. BNP was 4710 Chest x-ray shows unilateral right lung pulmonary edema and large cardiac silhouette. Echo showing EF 35%, abnormal diastolic function, reduced RV systolic fxn, all chambers are enlarged, mild MR, mild-mod TR with mild pulm HTN. Jardiance resumed. Entresto and Spironolactone added. Holding beta-carlie since patient is positive for cocaine. Fluid status -11L. Weight better. Old records requested. CHF teaching was done but patient was noncompliant with fluid restriction and oral intake. Cardiology consulted and appreciate their input. Patient had significant clinical improvement. Shortness of breath is resolved. He was changed to oral Lasix. (2) Elevated troponin: Troponin peaked at 0.089. EKG showing sinus tachycardia, occasional PVCs, LAD, LAE, LAFB and borderline ST-T wave changes lateral and high lateral leads but not change from prior EKG on 02/28. Probably related to stress response from CHF exacerbation and cocaine. Echo as above. Most likely will need ischemic evaluation at some point given his multiple risk factors. Wanting to review old records to see what his baseline EF is but none forthcoming. (3) Hypomagnesemia: Magnesium was low and this was replaced. We replaced to keep Mg>2 and Potassium > 4. (4) Diabetes: Glucose was 541 on admission. Related to noncompliance with his insulin regimen. Hemoglobin A1c was 11.8% on 03/01/2025. The patient's blood glucose was monitored with AccuCheks covering with sliding scale. Hypoglycemia protocol was available as needed. We continued to adjust Lantus and mealtime NovoLog but he was noncompliant with dietary restrictions and quantity of food intake. Diabetic diet ordered. (5) Alcohol abuse: Patient at risk for alcohol withdrawal. CIWA protocol started. Thiamine and folate started. Ativan and Librium were available as needed for evidence of alcohol withdrawal but not needed so far. CIWA score 0-2 mostly. He was educated about the benefits of abstaining from alcohol use. (6) Cocaine use: Patient admits to using cocaine. UDS positive for cocaine. He denies history of IV drug use. He refused HIV and hepatitis testing at this time. No history of HIV or hepatitis he is aware of. He was educated about the benefits of abstaining from drug use. (7) HTN (hypertension): Patient's blood pressure was monitored and became better controlled. (8) COPD (chronic obstructive pulmonary disease): Patient had some faint wheezing. He may have a mild COPD exacerbation contributing to his shortness of breath. Xopenex and Atrovent nebulizers available p.r.n. for shortness of breath. He was educated about the benefits of smoking cessation (9) ROSA MARIA (obstructive sleep apnea): Patient the history of sleep apnea and is compliant with his CPAP. We continued CPAP at bedtime and with naps. (10) Atrial fibrillation: Patient has a history of atrial fibrillation. No evidence of recurrence by telemetry. Holding beta-carlie at this time due to his cocaine use. We continued Eliquis Patient overall did well and was able to be discharged on 03/13/2025. Discharge instructions including side effects of medications were discussed in detail. All questions were answered. Status at Discharge Cognitive/behavioral status at discharge: Stable Time Spent with Patient Time attestation: Total time spent providing and/or coordinating discharge services: 35 minutes Time spent: Greater than 30 minutes Exam Narrative: AF 98.0 132/80 102 20 98% ra Gen - NARD Chest -clear to auscultation bilaterally. CV - RRR. Tele showing sinus tachycardia with occasional PVCs Abd - abdomen was soft. Obese. Nontender. Ext - trace edema. Neuro - awake, alert Skin - warm and dry DS: Data Data Completed and Pending Labs on day of discharge: Labs from last 24 hours 03/13/25 03/13/25 03/13/25 11:15 07:15 04:10 WBC 7.7 RBC 5.44 Hgb 14.8 Hct 47.0 MCV 86.4 MCH 27.2 MCHC 31.5 L RDW 14.6 H Plt Count 355 MPV 10.6 H Immature Gran % (Auto) 0.4 Neut % (Auto) 61.8 Lymph % (Auto) 26.5 Daggett % (Auto) 7.8 Eos % (Auto) 2.9 Baso % (Auto) 0.6 Lymph # (Auto) 2.04 Daggett # (Auto) 0.6 Eos # (Auto) 0.2 Baso # (Auto) 0.1 Abs Immat Gran (auto) 0.03 Absolute Neuts (auto) 4.8 Absolute Nucleated RBC 0.000 Nucleated RBC % 0.0 Sodium 138 Potassium 4.2 Chloride 101 Carbon Dioxide 28 Anion Gap 9 BUN 31 H Creatinine 1.13 Estim Creat Clear Calc 96 Estimated GFR > 60 Glucose 356 H POC Capillary Glucose 136 H 244 H Calcium 8.7 Magnesium 2.1 03/12/25 03/12/25 20:53 16:11 WBC RBC Hgb Hct MCV MCH MCHC RDW Plt Count MPV Immature Gran % (Auto) Neut % (Auto) Lymph % (Auto) Daggett % (Auto) Eos % (Auto) Baso % (Auto) Lymph # (Auto) Daggett # (Auto) Eos # (Auto) Baso # (Auto) Abs Immat Gran (auto) Absolute Neuts (auto) Absolute Nucleated RBC Nucleated RBC % Sodium Potassium Chloride Carbon Dioxide Anion Gap BUN Creatinine Estim Creat Clear Calc Estimated GFR Glucose POC Capillary Glucose 317 H 208 H Calcium Magnesium Discharge Plan Discharge Attending physician on discharge: Ankur Patino Consulting providers: Cely Hoffmann; Chikis England Discharging Clinician: Ankur Patino Anticipated Discharge Date/Time: 03/13/25 14:34 Patient Disposition: Home Activity: as tolerated Diet: heart healthy and diabetic Discharge Instructions: Fluid restrict your fluid intact to < 1500mL per day Please check glucose before meals and before bed. Record and bring into your doctor for review. Check blood pressure 1 to 2 times a day. Record and bring into your doctor for review. Call your doctor if your blood pressure is greater than 180/110. Take precautions to avoid falls. Rise slowly from a lying or sitting position. Pause before standing or walking. Check daily morning weights after voiding. Call your doctor if you gain more than 3 lb in 2 days or 5 lb in 1 week. Contact your doctor or call 911 and come to the Emergency Room if you have chest pain, lightheadedness with standing or other worrisome symptoms. Avoid NSAIDs (ibuprofen, naproxen, Aleve). Tylenol is safe to take. Follow-up with your primary care provider in 1-2 weeks. Please call for appointment. Follow-up with Medical Education Manager in 2-4 weeks. Please call for an appointment. Thank you for using [facility] for your health care needs. Patient Instructions: Antibiotic Form, Heart Failure (DC) Patient Language: Khmer Stand Alone Forms: General Discharge Information Follow-up/Referrals: PHYSICIAN,RAW PRODUCTS DIRECTOR [Primary Care Provider, Internal Medicine] - Call for Appointment Chikis England MD [Physician, Cardiology] - Call for Appointment Discharge Medications: New sacubitril-valsartan [Entresto] 24-26 mg Tablet 1 tab PO Q12HR Qty: 60 0RF spironolactone 25 mg Tablet 25 mg PO QAM Qty: 30 0RF Continued Mounjaro 2.5 mg/0.5 mL pen injector 2.5 mg subcut WEEKLY Patient Comments: Takes on Saturdays Rx Instructions: for 4 weeks rosuvastatin 40 mg tablet 40 mg PO DAILY Qty: 30 0RF Eliquis 5 mg tablet 5 mg PO Q12H Qty: 60 0RF insulin aspart U-100 [Novolog FlexPen U-100 Insulin] 100 unit/mL (3 mL) insulin pen 20 unit subcut TID Qty: 15 0RF metformin 1,000 mg tablet 1,000 mg PO BID Qty: 60 0RF aspirin [Adult Low Dose Aspirin] 81 mg tablet,delayed release (DR/EC) 81 mg PO DAILY Qty: 30 0RF Jardiance 25 mg tablet 25 mg PO DAILY Qty: 30 0RF insulin glargine [Lantus U-100 Insulin] 100 unit/mL solution 60 unit subcut QPM Qty: 10 0RF Changed furosemide [Lasix] 40 mg tablet 40 mg PO BID Qty: 60 0RF Held metoprolol succinate 100 mg tablet extended release 24 hr 100 mg PO DAILY Hold Instructions: HOLD - Resume when off cocaine and okay with your doctor Discontinued fenofibrate 150 mg capsule 150 mg PO HS lisinopril 20 mg tablet 20 mg PO DAILY Other Ambulatory Orders: Basic Metabolic Panel (Routine) Timeframe: 2 Weeks Location: Determined by Patient Ordered By: Ankur Patino Date of admission: 03/11/25 13:22 Primary Care Provider: PHYSICIAN,RAW PRODUCTS DIRECTOR Admitting Provider: Brynn Delarosa Attending physician on admission: Brynn Delarosa Condition: Stable Hospitalist MIPS Heart Failure (Exclusion) Patient has history of Heart Transplant or Left Ventricular Assistive Device?: No IF YES, STOP HERE Heart Failure (Qualifier) Patient has current or prior documentation of LVEF less than or equal to 40%, or mod/servere depressed LVSF?: No IF NO, STOP HERE
--- NOTE | 2025-03-13 15:05 | PC.NURSE ---
Reviewed all discharge instructions with patient including medications list (last dose taken and when next dose is due). IV access removed intact. No acute distress noted. Patient verbalizes understanding at this time.
== END 2025-03-13 15:26 | disposition home or self-care (01) | DRG 194 ==
LOC: ANHED 01:07 → ANHIMU 03:50
PROVIDERS: Physician Assistant; Admitting Provider Internal Medicine; Emergency Provider Student in an Organized Health Care Education/Training Program; Visit Provider Internal Medicine
DX: I11.0 Hypertensive heart disease with heart failure (principal); I50.43 Acute on chronic combined systolic (congestive) and diastolic (congestive) heart failure; E83.42 Hypomagnesemia; E11.9 Type 2 diabetes mellitus without complications; J44.1 Chronic obstructive pulmonary disease with (acute) exacerbation; F10.10 Alcohol abuse, uncomplicated; I25.10 Atherosclerotic heart disease of native coronary artery without angina pectoris; G47.33 Obstructive sleep apnea (adult) (pediatric); R79.89 Other specified abnormal findings of blood chemistry; F14.10 Cocaine abuse, uncomplicated; I48.91 Unspecified atrial fibrillation; F17.210 Nicotine dependence, cigarettes, uncomplicated; Z95.5 Presence of coronary angioplasty implant and graft; Z91.148 Patient's other noncompliance with medication regimen for other reason
CPT/HCPCS: 36415; 71045; 80048; 80053; 80061; 80069; 80307; 81001; 82010; 82077; 82570; 82803; 82948; 83735; 83880; 84100; 84156; 84443; 84484; 85025; 87637; 93005; 93306; 96374; 96375; 96376; 99285; A9270; G0378; J1815; J1938; J2060; J3411; J3475; J3480; J7040